=== PATIENT | male | born 1975 | race Caucasian/White ===

== ENCOUNTER 2019-09-13 16:52 | Inpatient (IN) | payer SELFPAY ==
[~2019-09-13] VITALS: Ht 190.5 cm; Wt 181.4 kg
[2019-09-13 17:36] LABS: BASO # 0.1 x10^3/uL (0.0-0.2); BASO % 1 % (0-3); EOS # 0.2 x10^3/uL (0.0-0.7); EOS % 2 % (0-3); HEMATOCRIT 46.9 % (39.0-53.0); HEMOGLOBIN 16.2 g/dL (13.0-17.5); LYMPH # 2.4 x10^3/uL (1.0-4.8); LYMPH % 28 % (24-48); MEAN CORPUSCULAR HEMOGLOBIN 32 pg (25-35); MEAN CORPUSCULAR HGB CONC 35 g/dL (31-37); MEAN CORPUSCULAR VOLUME 93 fL (79-100); MONO # 1.1 x10^3/uL (0.0-1.1); MONO % 13 % (0-9); NEUT # 4.9 x10^3/uL (1.8-7.7); NEUT % 56 % (31-73); PLATELET COUNT 141 x10^3/uL (140-400); RED BLOOD COUNT 5.03 x10^6/uL (4.30-5.70); RED CELL DISTRIBUTION WIDTH 13.4 % (11.5-14.5); WHITE BLOOD COUNT 8.8 x10^3/uL (4.0-11.0)
[2019-09-13 17:52] LABS: CALCIUM 8.9 mg/dL (8.5-10.1); CREATININE 1.1 mg/dL (0.7-1.3); GFR 72.1; POTASSIUM 4.1 mmol/L (3.5-5.1); PROTHROMBIN TIME PATIENT 13.2 SEC (11.7-14.0)
--- NOTE | 2019-09-13 17:55 | PHYS DOC ---
Past Medical History Past Medical History: Asthma, Bronchitis, Coagulopathy, Pneumonia Additional Past Medical Histor: LUPUS ANTICOAGULANT SYNDROME, HYPOGYCEMIA Additional Past Surgical Histo: right common femoral stenting, vena cava filter Alcohol Use: Rarely Adult General Chief Complaint Chief Complaint: LOWER EXTREMITY SWELLING HPI HPI Patient is a 44 year old male who presents with right lower leg pain, started 2 days ago. diffuse pain behind the knee and down. no injury or trauma. No redness or fevers. Hx of DVT, chronic coagulopathy. states he recently moved here, no PCP. States he is supposed to be on Xarelto but can not afford. Has not been taking for 3 months. Last DVT of the leg 7 months ago. States he has a stent in the right upper leg and Vena cava filter. He denies SOB or CP. He is resting in no distress Review of Systems Review of Systems Constitutional: Denies fever or chills [] Eyes: Denies change in visual acuity, redness, or eye pain [] HENT: Denies nasal congestion or sore throat [] Respiratory: Denies cough or shortness of breath [] Cardiovascular: No additional information not addressed in HPI [] GI: Denies abdominal pain, nausea, vomiting, bloody stools or diarrhea [] Musculoskeletal: Denies back pain. C/o right lower leg pain Integument: Denies rash or skin lesions [] Neurologic: Denies headache, focal weakness or sensory changes [] Endocrine: Denies polyuria or polydipsia [] All other systems were reviewed and found to be within normal limits, except as documented in this note. Current Medications Current Medications Current Medications Medications (Trade) Dose Ordered Sig/Cecil Start Time Stop Time Status Last Admin Dose Admin Fentanyl Citrate (Fentanyl 2ml Vial) 50 mcg 1X ONCE 09/13/19 18:00 09/13/19 18:01 DC 09/13/19 17:56 50 MCG Info (CONTRAST GIVEN -- Rx MONITORING) 1 each PRN DAILY PRN 09/13/19 19:30 09/15/19 19:29 Iohexol (Omnipaque 350 Mg/ml) 100 ml 1X ONCE 09/13/19 19:30 09/13/19 19:31 DC 09/13/19 19:45 100 ML Allergies Allergies Allergies Coded Allergies Type Severity Reaction Last Updated Verified morphine Adverse Reaction Intermediate Nausea 09/13/19 Yes Physical Exam Physical Exam Constitutional: Well developed, well nourished, no acute distress, non-toxic appearance. [] HENT: Normocephalic, atraumatic, bilateral external ears normal, oropharynx moist, no oral exudates, nose normal. [] Eyes: PERRLA, EOMI, conjunctiva normal, no discharge. [] Neck: Normal range of motion, no tenderness, supple, no stridor. [] Cardiovascular:Heart rate regular rhythm, no murmur [] Lungs & Thorax: Bilateral breath sounds clear to auscultation [] Abdomen: Bowel sounds normal, soft, no tenderness, no masses, no pulsatile masses. [] Skin: Warm, dry, no erythema, no rash. [] Extremities: No tenderness, no cyanosis, no clubbing, ROM intact. No redness, obese, no pitting edema to lower leg, 1+ edema to foot. Intact pulses and distal cap refill, due to obesity able to locate pulse with doppler. Neurologic: Alert and oriented X 3, normal motor function, normal sensory function, no focal deficits noted. [] Psychologic: Affect normal, judgement normal, mood normal. [] Current Patient Data Vital Signs Vital Signs Date Time Temp Pulse Resp B/P (MAP) Pulse Ox O2 Delivery O2 Flow Rate FiO2 09/13/19 18:47 95 22 137/87 (104) 95 Room Air Lab Values Laboratory Tests Test 09/13/19 17:28 White Blood Count 8.8 x10^3/uL (4.0-11.0) Red Blood Count 5.03 x10^6/uL (4.30-5.70) Hemoglobin 16.2 g/dL (13.0-17.5) Hematocrit 46.9 % (39.0-53.0) Mean Corpuscular Volume 93 fL (79-100) Mean Corpuscular Hemoglobin 32 pg (25-35) Mean Corpuscular Hemoglobin Concent 35 g/dL (31-37) Red Cell Distribution Width 13.4 % (11.5-14.5) Platelet Count 141 x10^3/uL (140-400) Neutrophils (%) (Auto) 56 % (31-73) Lymphocytes (%) (Auto) 28 % (24-48) Monocytes (%) (Auto) 13 % (0-9) H Eosinophils (%) (Auto) 2 % (0-3) Basophils (%) (Auto) 1 % (0-3) Neutrophils # (Auto) 4.9 x10^3/uL (1.8-7.7) Lymphocytes # (Auto) 2.4 x10^3/uL (1.0-4.8) Monocytes # (Auto) 1.1 x10^3/uL (0.0-1.1) Eosinophils # (Auto) 0.2 x10^3/uL (0.0-0.7) Basophils # (Auto) 0.1 x10^3/uL (0.0-0.2) Prothrombin Time 13.2 SEC (11.7-14.0) Prothrombin Time INR 1.0 (0.8-1.1) Activated Partial Thromboplast Time 31 SEC (24-38) Sodium Level 140 mmol/L (136-145) Potassium Level 4.1 mmol/L (3.5-5.1) Chloride Level 105 mmol/L (98-107) Carbon Dioxide Level 26 mmol/L (21-32) Anion Gap 9 (6-14) Blood Urea Nitrogen 9 mg/dL (8-26) Creatinine 1.1 mg/dL (0.7-1.3) Estimated GFR (Cockcroft-Gault) 72.1 Glucose Level 143 mg/dL (70-99) H Calcium Level 8.9 mg/dL (8.5-10.1) Troponin I Quantitative < 0.017 ng/mL (0.000-0.055) Laboratory Tests 09/13/19 17:28 Laboratory Tests 09/13/19 17:28 EKG EKG [] Radiology/Procedures Radiology/Procedures [] Signed PATIENT: SPARKLE RODRIGUEZACCOUNT: [id number] : 1975 LOCATION: ER AGE: 44 SEX: M EXAM STATUS: REG ER ORD. PHYSICIAN: JUDY MASCORRO APRN REASON: r/o DVT PROCEDURE: VENOUS LOWER EXTREMITY RIGHT STUDY: VENOUS LOWER EXTREMITY RIGHT INDICATION: Concern for DVT. History of venous stent placement. TECHNIQUE: Color-flow and pulsed wave duplex ultrasound with compression of venous structures of the right lower extremity. COMPARISON: None Available. FINDINGS: Duplex ultrasound with compression of the deep venous structures of the right lower extremity from the common femoral vein through the calf veins is performed. Note is made that the study is made difficult secondary to body habitus. There is loss of compressibility as well as absence of Doppler flow consistent with occlusion involving the distal portion of the right common femoral vein, the superficial femoral vein and the majority of the popliteal vein. There is limited visualization of the peroneal and posterior tibial veins. Subcutaneous edema seen at the lower legs. IMPRESSION: 1. The study is made difficult due to patient body habitus. 2. In the setting of prior venous stenting, there is occlusion of at least the distal portion right common femoral vein, the entirety of the superficial femoral vein and most of the popliteal vein. The distal aspect of the popliteal vein as well as the calf veins are not well evaluated. FOR INTERNAL CODING PURPOSES RESULT CODE: (C) Significant findings were relayed to Dr. Mascorro by telephone on 09/13/2019 at 1925 hours. Electronically signed by: ASHOK GOMEZ MD (09/13/2019 7:27 PM) [facility] [place] Signed PATIENT: PSARKLE RODRIGUEZACCOUNT: [id number] : 1975 LOCATION: ER AGE: 44 SEX: M EXAM STATUS: REG ER ORD. PHYSICIAN: JUDY MASCORRO APRN REASON: r/o PE PROCEDURE: CT ANGIOGRAPHY CHEST PQRS Compliance Statement: One or more of the following individualized dose reduction techniques were utilized for this examination: 1. Automated exposure control 2. Adjustment of the mA and/or kV according to patient size 3. Use of iterative reconstruction technique CT angiography chest with contrast 09/13/2019 7:11 PM INDICATION: DVT COMPARISON: None available TECHNIQUE: Axial CT images of the chest were obtained after the intravenous administration of nonionic contrast. Coronal and sagittal reformats are provided. Maximum intensity projection images of the thoracic vasculature are provided. FINDINGS: The thyroid gland is normal in appearance. There are no pathologically enlarged axillary, mediastinal or hilar lymph nodes.] Lymph node measures 6.5 mm. Left hilar lymph node measures 6 mm. The heart size is within normal limits. No significant pericardial effusion. Thoracic aorta is normal in course and caliber. There is suboptimal opacification of the pulmonary arterial system with limited evaluation of the segmental and subsegmental pulmonary arteries. There there are no filling defects within the pulmonary arterial system to suggest acute or chronic pulmonary embolus. 6 mm solid noncalcified pulmonary nodule is identified in the right middle lobe (series 3, image 68). There are no pulmonary infiltrates. There are no pleural effusions. No pulmonary vascular congestion or pneumothorax. Hepatic steatosis. Nodular configuration of the hepatic parenchyma may reflect cirrhosis. IMPRESSION: Limited segmental and subsegmental pulmonary arteries secondary to suboptimal opacification. There is no evidence for acute or chronic pulmonary embolism. 6 mm solid noncalcified pulmonary nodule is identified in the right middle lobe (series 3, image 68). 6/12 month follow-up chest CT is recommended to ensure severity per Fleischner 2017 pulmonary nodule guidelines. Nonenlarged bilateral hilar lymph nodes are likely reactive. Electronically signed by: Alise Griffiths MD (09/13/2019 8:04 PM) [facility] Impressions: Right leg DVT, acute Course & Med Decision Making Course & Med Decision Making Pertinent Labs and Imaging studies reviewed. (See chart for details) []Hx of coagulopathy, not on Xarelto due to cost, states he does not tolerate Coumadin or Lovenox, not therapeutic with either. Has Vena cava filter no SOB or CP. Mild tachycardia, declines work up for PE,states he is here for right leg pain and r/o DVT, not symptoms of prior PE. Labs reviewed, WNL US right leg: + DVT 1924: Rad called with report Discussed finding with patient, again questioned him out PE symptoms. He has a Vena cava filter but reports it "is bad" has had a PE since this was placed, at that time Xarelto was 10 mg daily, increased to 20 mg Mother at bedside reports SOB with exertion and is requesting CT PE study, patient denies but is in agreement Remains with no CP or hypoxia CT chest: neg Will admit to Hospitalist, Heparin protocol, discussed with pharmacy, weight based, will dose for obesity and max dose. Bolus Patient in agreement for admission, remains in stable condition Requesting albuterol treatment, hx of asthma, lungs CTA, "feeling tight" No hypoxia, no CP Dragon Disclaimer Dragon Disclaimer This electronic medical record was generated, in whole or in part, using a voice recognition dictation system. Departure Departure Impression: Primary Impression: Right leg DVT Disposition: ADMITTED INPATIENT (riffel) Condition: STABLE Referrals: NO PCP (PCP) JUDY MASCORRO APRN Sep 13, 2019 17:55
[2019-09-13] MEDS ORDERED: fentaNYL PF VIAL 100 MCG/2 ML VIAL IVP ONE (18:00)
[2019-09-13] MEDS ORDERED: IOHEXOL 350 MG/ML 100 ML VIAL. IV ONE (19:30)
[2019-09-13] MEDS ORDERED: CONTRAST GIVEN. MC PRN (19:30)
--- NOTE | 2019-09-13 19:30 | RAD ---
STUDY: VENOUS LOWER EXTREMITY RIGHT INDICATION: Concern for DVT. History of venous stent placement. TECHNIQUE: Color-flow and pulsed wave duplex ultrasound with compression of venous structures of the right lower extremity. COMPARISON: None Available. FINDINGS: Duplex ultrasound with compression of the deep venous structures of the right lower extremity from the common femoral vein through the calf veins is performed. Note is made that the study is made difficult secondary to body habitus. There is loss of compressibility as well as absence of Doppler flow consistent with occlusion involving the distal portion of the right common femoral vein, the superficial femoral vein and the majority of the popliteal vein. There is limited visualization of the peroneal and posterior tibial veins. Subcutaneous edema seen at the lower legs. IMPRESSION: 1. The study is made difficult due to patient body habitus. 2. In the setting of prior venous stenting, there is occlusion of at least the distal portion right common femoral vein, the entirety of the superficial femoral vein and most of the popliteal vein. The distal aspect of the popliteal vein as well as the calf veins are not well evaluated. FOR INTERNAL CODING PURPOSES RESULT CODE: (C) Significant findings were relayed to Dr. Mascorro by telephone on 09/13/2019 at 1925 hours. Electronically signed by: ASHOK GOMEZ MD (09/13/2019 7:27 PM) [facility] [place]
--- NOTE | 2019-09-13 20:07 | RAD ---
PQRS Compliance Statement: One or more of the following individualized dose reduction techniques were utilized for this examination: 1. Automated exposure control 2. Adjustment of the mA and/or kV according to patient size 3. Use of iterative reconstruction technique CT angiography chest with contrast 09/13/2019 7:11 PM INDICATION: DVT COMPARISON: None available TECHNIQUE: Axial CT images of the chest were obtained after the intravenous administration of nonionic contrast. Coronal and sagittal reformats are provided. Maximum intensity projection images of the thoracic vasculature are provided. FINDINGS: The thyroid gland is normal in appearance. There are no pathologically enlarged axillary, mediastinal or hilar lymph nodes.] Lymph node measures 6.5 mm. Left hilar lymph node measures 6 mm. The heart size is within normal limits. No significant pericardial effusion. Thoracic aorta is normal in course and caliber. There is suboptimal opacification of the pulmonary arterial system with limited evaluation of the segmental and subsegmental pulmonary arteries. There there are no filling defects within the pulmonary arterial system to suggest acute or chronic pulmonary embolus. 6 mm solid noncalcified pulmonary nodule is identified in the right middle lobe (series 3, image 68). There are no pulmonary infiltrates. There are no pleural effusions. No pulmonary vascular congestion or pneumothorax. Hepatic steatosis. Nodular configuration of the hepatic parenchyma may reflect cirrhosis. IMPRESSION: Limited segmental and subsegmental pulmonary arteries secondary to suboptimal opacification. There is no evidence for acute or chronic pulmonary embolism. 6 mm solid noncalcified pulmonary nodule is identified in the right middle lobe (series 3, image 68). 6/12 month follow-up chest CT is recommended to ensure severity per Fleischner 2017 pulmonary nodule guidelines. Nonenlarged bilateral hilar lymph nodes are likely reactive. Electronically signed by: Alise Griffiths MD (09/13/2019 8:04 PM) [place] [id number]
[2019-09-13] MEDS ORDERED: ONDANSETRON PF 4 MG/2 ML VIAL. IV PRN (20:30)
[2019-09-13] MEDS ORDERED: HEPARIN for IV BOLUS 10,000 UNIT/10 ML VIAL. IV PRN ×2 (20:30)
[2019-09-13] MEDS ORDERED: HEPARIN for IV BOLUS 10,000 UNIT/10 ML VIAL. IV ONE (20:30)
[2019-09-13] MEDS ORDERED: ALBUTEROL SULFATE 2.5 MG/3 ML NEBU. NEB ONE (20:30)
[2019-09-13] MEDS: HEPARIN 25,000UTS/500ML PREMIX 500 ML IV PRN (21:19)
[2019-09-13 21:25] VITALS: BP 114/69
[2019-09-13] MEDS ORDERED: ALBUTEROL SULFATE 2.5 MG/3 ML NEBU. NEB PRN (21:30)
[2019-09-13] MEDS: IPRATRPIUM/ALBUTEROL 0.5/2.5MG 3 ML NEBU. NEB SCH (21:38)
[2019-09-13] MEDS: fentaNYL PF VIAL 100 MCG/2 ML VIAL IV PRN (22:20)
[2019-09-13] MEDS ORDERED: RIVA20TA2 PO (23:45)
[2019-09-13] MEDS ORDERED: IPRA3AMP29 NEB (23:45)
[2019-09-13] MEDS ORDERED: ALBU2.5V8 IH (23:45)
[2019-09-13 23:58] VITALS: BP 132/75
[2019-09-14] MEDS ORDERED: IOHEXOL 350 MG/ML 100 ML VIAL. ONE (00:41)
[2019-09-14 03:45] VITALS: BP 113/55
[2019-09-14] MEDS: fentaNYL PF VIAL 100 MCG/2 ML VIAL IV PRN ×3 (06:10→19:55)
[2019-09-14 08:00] VITALS: BP 132/76
[2019-09-14] MEDS: IPRATRPIUM/ALBUTEROL 0.5/2.5MG 3 ML NEBU. NEB SCH ×4 (08:10→19:08)
--- NOTE | 2019-09-14 10:50 | PDOC1 ---
History and Physical Date of Admission Date of Admission DATE: 09/14/19 TIME: 08:49 Identification/Chief Complaint Chief Complaint 44 year old male who presents with right lower leg pain, started 2 days ago. diffuse pain behind the knee and down. no injury or trauma. No redness or fevers. Hx of DVT, chronic coagulopathy. states he recently moved here, no PCP. States he is supposed to be on Xarelto but can not afford. Has not been taking for 3 months. BUT NOW HAS ASSISTANCE CARD Last DVT of the leg 7 months ago. he has a stent in the right upper leg and Vena cava filter. 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, AND [employer] INSURANCE IN OCT 2019 Past Medical History Past Medical History Past Medical History Past Medical History Past Medical History: Asthma, Bronchitis, Coagulopathy, Pneumonia Additional Past Medical Histor: LUPUS ANTICOAGULANT SYNDROME, HYPOGYCEMIA Additional Past Surgical Histo: right common femoral stenting, vena cava filter Alcohol Use: Rarely fhx obesity Pulmonary: Asthma Family History Family History: Hypertension Social History Smoke: <1 pack per day ALCOHOL: none Drugs: None Current Medications Current Medications Current Medications Fentanyl Citrate (Fentanyl 2ml Vial) 50 mcg 1X ONCE IVP Last administered on 09/13/19at 17:56; Start 09/13/19 at 18:00; Stop 09/13/19 at 18:01; Status DC Iohexol (Omnipaque 350 Mg/ml) 100 ml 1X ONCE IV Last administered on 09/13/19at 19:45; Start 09/13/19 at 19:30; Stop 09/13/19 at 19:31; Status DC Info (CONTRAST GIVEN -- Rx MONITORING) 1 each PRN DAILY PRN MC SEE COMMENTS; Start 09/13/19 at 19:30; Stop 09/15/19 at 19:29 Albuterol Sulfate (Ventolin Neb Soln) 2.5 mg 1X ONCE NEB ; Start 09/13/19 at 20:30; Stop 09/13/19 at 21:26; Status DC Heparin Sodium (Porcine) (Heparin Sodium) 10,000 unit 1X ONCE IV Last administered on 09/13/19at 21:18; Start 09/13/19 at 20:30; Stop 09/13/19 at 20:31; Status DC Heparin Sodium/ Dextrose 500 ml @ 40 mls/hr CONT PRN IV PER PROTOCOL Last administered on 09/13/19at 21:19; Start 09/13/19 at 20:30 Heparin Sodium (Porcine) (Heparin Sodium) 5,500 unit PRN Q6HRS PRN IV FOR UFH LEVEL LESS THAN 0.2; Start 09/13/19 at 20:30 Heparin Sodium (Porcine) (Heparin Sodium) 2,700 unit PRN Q6HRS PRN IV FOR UFH LEVEL 0.2 - 0.29; Start 09/13/19 at 20:30 Ondansetron HCl (Zofran) 4 mg PRN Q8HRS PRN IV NAUSEA/VOMITING; Start 09/13/19 at 20:30; Stop 09/14/19 at 20:29 Fentanyl Citrate (Fentanyl 2ml Vial) 50 mcg PRN Q1HR PRN IV PAIN Last administered on 09/14/19at 06:10; Start 09/13/19 at 20:30; Stop 09/14/19 at 20:29 Albuterol/ Ipratropium (Duoneb) 3 ml RTQID NEB Last administered on 09/14/19at 08:10; Start 09/13/19 at 21:30 Albuterol Sulfate (Ventolin Neb Soln) 2.5 mg PRN Q4HRS PRN NEB SHORTNESS OF BREATH Last administered on 09/14/19at 06:08; Start 09/13/19 at 21:30 Iohexol (Omnipaque 350 Mg/ml) 100 ml STK-MED ONCE .ROUTE ; Start 09/14/19 at 00:41; Stop 09/14/19 at 00:41; Status DC Active Scripts Active Reported Duoneb 0.5-3(2.5) Mg/3 Ml (Albuterol/Ipratropium) 3 Ml Ampul.neb 3 Ml NEB QID Proair Hfa Inhaler (Albuterol Sulfate) 8.5 Gm Hfa.aer.ad 2 Puff IH PRN Q4-6HRS PRN 21 Days Xarelto (Rivaroxaban) 20 Mg Tablet 1 Tab PO DAILY 30 Days with food Allergies Allergies: Coded Allergies: morphine (Verified Adverse Reaction, Intermediate, Nausea, 09/13/19) ROS Review of System Review of Systems Review of Systems Constitutional: Denies fever or chills [] Eyes: Denies change in visual acuity, redness, or eye pain [] HENT: Denies nasal congestion or sore throat [] Respiratory: Denies cough or shortness of breath [] Cardiovascular: No additional information not addressed in HPI [] GI: Denies abdominal pain, nausea, vomiting, bloody stools or diarrhea [] Musculoskeletal: Denies back pain. C/o right lower leg pain Integument: Denies rash or skin lesions [] Neurologic: Denies headache, focal weakness or sensory changes [] Endocrine: Denies polyuria or polydipsia [] 14 PT systems were reviewed and found to be within normal limits, except as documented Respiratory: No: Cough, Hemoptysis, Orthopnea, Pleuritic Pain, Shortness of breath, SOB with excertion, Sputum Changes, Stridor, Tachypnea, Wheezing, Other Cardiovascular: No Chest Pain, No Palpitations, No Orthopnea, No Paroxysmal Noc. Dyspnea, No Edema, No Lt Headedness, No Other Musculoskeletal: Yes Gait Disturbance, Yes Joint Stiffness Neurological: Yes Gait Disturbance Physical Exam Physical Exam Physical Exam Physical Exam Constitutional: Well developed, well nourished, no acute distress, non-toxic appearance. [] HENT: Normocephalic, atraumatic, bilateral external ears normal, oropharynx moist, no oral exudates, nose normal. [] Eyes: PERRLA, EOMI, conjunctiva normal, no discharge. [] Neck: Normal range of motion, no tenderness, supple, no stridor. [] Cardiovascular:Heart rate regular rhythm, no murmur [] Lungs & Thorax: Bilateral breath sounds clear to auscultation [] Abdomen: Bowel sounds normal, soft, no tenderness, no masses, no pulsatile masses. [] Skin: Warm, dry, no erythema, no rash. [] Extremities: No tenderness, no cyanosis, no clubbing, ROM intact. No redness, ob galina, no pitting edema to lower leg, 1+ edema to foot. Neurologic: Alert and oriented X 3, normal motor function, normal sensory function, no focal deficits noted. [] Psychologic: Affect normal, judgment normal, mood normal. [] General: Alert, Oriented X3, Cooperative, No acute distress HEENT: Atraumatic, EOMI, Mucous membr. moist/pink Lungs: Clear to auscultation, Normal air movement Heart: RRR, no thrills Breasts: Not examined Abdomen: Normal bowel sounds, Soft Rectal Exam: not examined PELVIC: Examination not indicated Extremities: No cyanosis Neuro: Normal speech, Cranial nerves 3-12 NL Psych/Mental Status: Mental status NL, Mood NL Vitals Vitals Vital Signs Date Time Temp Pulse Resp B/P (MAP) Pulse Ox O2 Delivery O2 Flow Rate FiO2 09/14/19 09:29 95 Room Air 09/14/19 08:00 98.4 79 19 132/76 (94) 98.4 Labs Labs Laboratory Tests Test 09/13/19 17:28 09/14/19 04:15 White Blood Count 8.8 x10^3/uL (4.0-11.0) Red Blood Count 5.03 x10^6/uL (4.30-5.70) Hemoglobin 16.2 g/dL (13.0-17.5) Hematocrit 46.9 % (39.0-53.0) Mean Corpuscular Volume 93 fL (79-100) Mean Corpuscular Hemoglobin 32 pg (25-35) Mean Corpuscular Hemoglobin Concent 35 g/dL (31-37) Red Cell Distribution Width 13.4 % (11.5-14.5) Platelet Count 141 x10^3/uL (140-400) Neutrophils (%) (Auto) 56 % (31-73) Lymphocytes (%) (Auto) 28 % (24-48) Monocytes (%) (Auto) 13 % (0-9) Eosinophils (%) (Auto) 2 % (0-3) Basophils (%) (Auto) 1 % (0-3) Neutrophils # (Auto) 4.9 x10^3/uL (1.8-7.7) Lymphocytes # (Auto) 2.4 x10^3/uL (1.0-4.8) Monocytes # (Auto) 1.1 x10^3/uL (0.0-1.1) Eosinophils # (Auto) 0.2 x10^3/uL (0.0-0.7) Basophils # (Auto) 0.1 x10^3/uL (0.0-0.2) Prothrombin Time 13.2 SEC (11.7-14.0) Prothromb Time International Ratio 1.0 (0.8-1.1) Activated Partial Thromboplast Time 31 SEC (24-38) Sodium Level 140 mmol/L (136-145) Potassium Level 4.1 mmol/L (3.5-5.1) Chloride Level 105 mmol/L (98-107) Carbon Dioxide Level 26 mmol/L (21-32) Anion Gap 9 (6-14) Blood Urea Nitrogen 9 mg/dL (8-26) Creatinine 1.1 mg/dL (0.7-1.3) Estimated GFR (Cockcroft-Gault) 72.1 Glucose Level 143 mg/dL (70-99) Calcium Level 8.9 mg/dL (8.5-10.1) Troponin I Quantitative < 0.017 ng/mL (0.000-0.055) Heparin Anti-Xa Act, Unfractionated 0.19 IU/mL (0.30-0.70) Laboratory Tests Test 09/13/19 17:28 09/14/19 04:15 White Blood Count 8.8 x10^3/uL (4.0-11.0) Red Blood Count 5.03 x10^6/uL (4.30-5.70) Hemoglobin 16.2 g/dL (13.0-17.5) Hematocrit 46.9 % (39.0-53.0) Mean Corpuscular Volume 93 fL (79-100) Mean Corpuscular Hemoglobin 32 pg (25-35) Mean Corpuscular Hemoglobin Concent 35 g/dL (31-37) Red Cell Distribution Width 13.4 % (11.5-14.5) Platelet Count 141 x10^3/uL (140-400) Neutrophils (%) (Auto) 56 % (31-73) Lymphocytes (%) (Auto) 28 % (24-48) Monocytes (%) (Auto) 13 % (0-9) Eosinophils (%) (Auto) 2 % (0-3) Basophils (%) (Auto) 1 % (0-3) Neutrophils # (Auto) 4.9 x10^3/uL (1.8-7.7) Lymphocytes # (Auto) 2.4 x10^3/uL (1.0-4.8) Monocytes # (Auto) 1.1 x10^3/uL (0.0-1.1) Eosinophils # (Auto) 0.2 x10^3/uL (0.0-0.7) Basophils # (Auto) 0.1 x10^3/uL (0.0-0.2) Prothrombin Time 13.2 SEC (11.7-14.0) Prothromb Time International Ratio 1.0 (0.8-1.1) Activated Partial Thromboplast Time 31 SEC (24-38) Sodium Level 140 mmol/L (136-145) Potassium Level 4.1 mmol/L (3.5-5.1) Chloride Level 105 mmol/L (98-107) Carbon Dioxide Level 26 mmol/L (21-32) Anion Gap 9 (6-14) Blood Urea Nitrogen 9 mg/dL (8-26) Creatinine 1.1 mg/dL (0.7-1.3) Estimated GFR (Cockcroft-Gault) 72.1 Glucose Level 143 mg/dL (70-99) Calcium Level 8.9 mg/dL (8.5-10.1) Troponin I Quantitative < 0.017 ng/mL (0.000-0.055) Heparin Anti-Xa Act, Unfractionated 0.19 IU/mL (0.30-0.70) Images Images PQRS Compliance Statement: One or more of the following individualized dose reduction techniques were utilized for this examination: 1. Automated exposure control 2. Adjustment of the mA and/or kV according to patient size 3. Use of iterative reconstruction technique CT angiography chest with contrast 09/13/2019 7:11 PM INDICATION: DVT COMPARISON: None available TECHNIQUE: Axial CT images of the chest were obtained after the intravenous administration of nonionic contrast. Coronal and sagittal reformats are provided. Maximum intensity projection images of the thoracic vasculature are provided. FINDINGS: The thyroid gland is normal in appearance. There are no pathologically enlarged axillary, mediastinal or hilar lymph nodes.] Lymph node measures 6.5 mm. Left hilar lymph node measures 6 mm. The heart size is within normal limits. No significant pericardial effusion. Thoracic aorta is normal in course and caliber. There is suboptimal opacification of the pulmonary arterial system with limited evaluation of the segmental and subsegmental pulmonary arteries. There there are no filling defects within the pulmonary arterial system to suggest acute or chronic pulmonary embolus. 6 mm solid noncalcified pulmonary nodule is identified in the right middle lobe (series 3, image 68). There are no pulmonary infiltrates. There are no pleural effusions. No pulmonary vascular congestion or pneumothorax. Hepatic steatosis. Nodular configuration of the hepatic parenchyma may reflect cirrhosis. IMPRESSION: Limited segmental and subsegmental pulmonary arteries secondary to suboptimal opacification. There is no evidence for acute or chronic pulmonary embolism. 6 mm solid noncalcified pulmonary nodule is identified in the right middle lobe (series 3, image 68). 6/12 month follow-up chest CT is recommended to ensure severity per Fleischner 2017 pulmonary nodule guidelines. Nonenlarged bilateral hilar lymph nodes are likely reactive. Electronically signed by: Teressa Griffiths MD (09/13/2019 8:04 PM) [facility] [id number] DICTATED and SIGNED BY: TERESSA GRIFFITHS MD DATE: 09/13/192003 SEX: M EXAM STATUS: REG ER ORD. PHYSICIAN: JUDY GIL APRN REASON: r/o DVT PROCEDURE: VENOUS LOWER EXTREMITY RIGHT STUDY: VENOUS LOWER EXTREMITY RIGHT INDICATION: Concern for DVT. History of venous stent placement. TECHNIQUE: Color-flow and pulsed wave duplex ultrasound with compression of venous structures of the right lower extremity. COMPARISON: None Available. FINDINGS: Duplex ultrasound with compression of the deep venous structures of the right lower extremity from the common femoral vein through the calf veins is performed. Note is made that the study is made difficult secondary to body habitus. There is loss of compressibility as well as absence of Doppler flow consistent with occlusion involving the distal portion of the right common femoral vein, the superficial femoral vein and the majority of the popliteal vein. There is limited visualization of the peroneal and posterior tibial veins. Subcutaneous edema seen at the lower legs. IMPRESSION: 1. The study is made difficult due to patient body habitus. 2. In the setting of prior venous stenting, there is occlusion of at least the distal portion right common femoral vein, the entirety of the superficial femoral vein and most of the popliteal vein. The distal aspect of the popliteal vein as well as the calf veins are not well evaluated. VTE Prophylaxis Ordered VTE Prophylaxis Devices: Contraindicated VTE Pharmacological Prophylaxi: Yes Assessment/Plan Assessment/Plan IMPRESSION ACUTE ON CHRONIC DVT there is occlusion of at least the distal portion right common femoral vein, the entirety of the superficial femoral vein and most of the popliteal vein. The distal aspect of the popliteal vein as well as the calf veins are not well evaluated. MORBID OBESITY FIRST DVT 2010 LUPUS ANTICOAGULANT SYNDROME ON CTA 6 mm solid noncalcified pulmonary nodule is identified in the right middle lobe (series 3, image 68). 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
[2019-09-14] MEDS: HEPARIN 25,000UTS/500ML PREMIX 500 ML IV PRN (10:53)
[2019-09-14 11:00] VITALS: BP 117/72
[2019-09-14] MEDS ORDERED: cloNIDine HCL 0.1 MG TABLET PO PRN (13:00)
[2019-09-14] MEDS ORDERED: ONDANSETRON PF 4 MG/2 ML VIAL. IV PRN (13:00)
[2019-09-14] MEDS ORDERED: ACETAMINOPHEN 325 MG TABLET. PO PRN (13:00)
[2019-09-14] MEDS ORDERED: ALBUTEROL SULFATE 2.5 MG/3 ML NEBU. NEB PRN (13:00)
[2019-09-14] MEDS ORDERED: LORazepam 0.5 MG TABLET PO PRN (13:00)
[2019-09-14] MEDS ORDERED: DOCUSATE SODIUM 100 MG CAPSULE. PO PRN (13:00)
[2019-09-14] MEDS ORDERED: SODIUM PHOSPHATES 19/7GM 133 ML ENEMA. PR PRN (13:00)
[2019-09-14] MEDS ORDERED: 0.9 % SODIUM CHLORIDE 10 ML DISP.SYRIN. IV PRN (13:00)
[2019-09-14] MEDS ORDERED: MAG HYDROX/ALUMINUM HYD/SIMETH 30 ML ORAL.SUSP PO PRN (13:00)
[2019-09-14 15:00] VITALS: BP 156/76
[2019-09-14] MEDS ORDERED: WARFARIN 7.5 MG TABLET. PO SCH (16:00)
[2019-09-14] MEDS ORDERED: ANTI-COAG MONITOR BY PHARMACY. MC PRN (16:00)
[2019-09-14] MEDS: RIVAROXABAN 15 MG TABLET. PO SCH (17:52)
--- NOTE | 2019-09-14 18:53 | PDOC ---
Provider Note Provider Note Vascular consult dictated Imp: 1. recurrent DVT right leg affecting the common femoral, femoral and popliteal veins. Prior episode in 2010 2. hypercoagulable state. (lupus anticoagulant) 3. s/p placement of IVC filter 4. morbid obesity 5. tobaccoism Rec: 1. lifelong anticoagulation with warfarin or 10a inhibitor. Heparin has been started. 2. weight loss 3. knee high class 3 graduated compression stocking 4. tobacco cessation 5. leg elevation when able 6. f/u as needed. DONNIE COLMENARES II, MD Sep 14, 2019 18:53
[2019-09-14 19:44] VITALS: BP 156/74
--- NOTE | 2019-09-14 20:08 | CONS ---
DATE OF CONSULTATION: 09/14/2019 VASCULAR SURGERY CONSULTATION CLINICAL HISTORY: This is a 44-year-old gentleman who presents with recurrent pain in the right lower extremity. He has had a prior episode of deep vein thrombosis involving the common femoral vein, femoral vein, and popliteal vein in 2010. He has known lupus anticoagulant syndrome and he is morbidly obese. He has stopped taking Xarelto about 3-4 months ago because of cost issues. He does not complain of chest pain or shortness of breath and he has had no complaints of hemoptysis. Currently, his leg feels much better and he is having no respiratory issues. He has had a prior inferior vena cava filter placed and apparently had an attempt to remove it, which was unsuccessful. The patient had a CT angiogram of the chest, which demonstrates no evidence for pulmonary embolism. Venous duplex imaging reveals acute on chronic thrombosis of the right common femoral vein, femoral vein, and popliteal vein. His risk factors for thromboembolic disease include morbid obesity, lupus anticoagulant syndrome, and tobaccoism. PAST MEDICAL HISTORY: Significant for asthma, bronchitis, hypercoagulable state, pneumonia, and history of deep vein thrombosis. FAMILY HISTORY: Significant for hypertension. SOCIAL HISTORY: The patient smokes less than 1 pack of cigarettes per day. Denies alcohol abuse. MEDICATIONS: Reviewed. Please see MAR. ALLERGIES: INCLUDE MORPHINE. REVIEW OF SYSTEMS: Twelve-point review of systems: He does not complain of chest pain or shortness of breath. He complains of pain in his right leg. Otherwise, 12-point review of systems is negative. PHYSICAL EXAMINATION: VITAL SIGNS: Reviewed. GENERAL: The patient is morbidly obese. He answers questions appropriately. He is in no distress. EXTREMITIES: His right leg is asymmetrically swollen compared to the left. There are no skin changes and no ulcers. He has palpable pedal pulses. CARDIOVASCULAR: Regular rate and rhythm. NEUROLOGIC: The patient is alert and oriented x 3. LABORATORY DATA: Reviewed. IMPRESSION: 1. Recurrent deep vein thrombosis, right lower extremity as described. His risk factors include hypercoagulable disorder, morbid obesity, and relative inactivity. 2. History of inferior vena cava filter placement without removal. 3. No evidence currently for pulmonary embolism by CT angiography. 4. History of tobaccoism. RECOMMENDATIONS: 1. Anticoagulation, currently on heparin. He will need to be transitioned either to warfarin or to Xarelto pending financial considerations. 2. Knee-high compression therapy, class 3 or above, open toe. 3. Elevation of the right lower extremity as tolerated. 4. He should be maintained on anticoagulation therapy for the remainder of his life as tolerated. Thank you for allowing me to evaluate him. DONNIE COLMENARES MD DR: DEBI/noni JOB#: [id number] / [id number]
[2019-09-14 23:25] VITALS: BP 137/65
[2019-09-15] MEDS ORDERED: oxyCODONE/APAP 5/325 1 TAB TABLET PO PRN (00:30)
[2019-09-15] MEDS: fentaNYL PF VIAL 100 MCG/2 ML VIAL IVP PRN ×2 (00:38→05:08)
[2019-09-15 03:36] VITALS: BP 127/63
[2019-09-15 04:49] LABS: HEMATOCRIT 44.2 % (39.0-53.0); HEMOGLOBIN 15.1 g/dL (13.0-17.5); RED BLOOD COUNT 4.66 x10^6/uL (4.30-5.70); RED CELL DISTRIBUTION WIDTH 13.8 % (11.5-14.5); WHITE BLOOD COUNT 8.6 x10^3/uL (4.0-11.0)
[2019-09-15 07:00] VITALS: BP 94/52
[2019-09-15] MEDS: IPRATRPIUM/ALBUTEROL 0.5/2.5MG 3 ML NEBU. NEB SCH ×2 (07:59→11:42)
--- NOTE | 2019-09-15 08:04 | NUR ---
SW following pt for dc planning. Chart reviewed. Pt lives at home with family. No SW needs identified at this time. SW will be available as needed.
[2019-09-15] MEDS: RIVAROXABAN 15 MG TABLET. PO SCH (09:33)
--- NOTE | 2019-09-15 10:37 | PDOC ---
[employer] PROGRESS NOTE Chief Complaint Chief Complaint Acute on Chronic DVT Morbid Obesity Lupus anticoagulant Syndrome History of Present Illness History of Present Illness 09/15/2019 Pt was seen and examined. Upon entering the room pt was resting comfortable, with possible apneic breathing, he was easily aroused and pleasant to converse with. No reported discomfort today, pt reports he's eager to be D/Raf. Vitals/I&O Vitals/I&O: Vital Signs Date Time Temp Pulse Resp B/P (MAP) Pulse Ox O2 Delivery O2 Flow Rate FiO2 09/15/19 09:48 96 Room Air 09/15/19 07:00 98.2 81 18 94/52 (66) 98.2 I & O 09/14/19 09/14/19 09/15/19 14:59 22:59 06:59 Intake Total 320 ml 570 ml 450 ml Balance 320 ml 570 ml 450 ml Physical Exam General: Alert, Oriented X3, Cooperative, No acute distress Heart: Regular rate Lungs: Clear Abdomen: Normal bowel sounds, Soft Extremities: No cyanosis Labs Labs: Laboratory Tests Test 09/14/19 12:05 09/15/19 03:40 Heparin Anti-Xa Act, Unfractionated 0.16 IU/mL (0.30-0.70) White Blood Count 8.6 x10^3/uL (4.0-11.0) Red Blood Count 4.66 x10^6/uL (4.30-5.70) Hemoglobin 15.1 g/dL (13.0-17.5) Hematocrit 44.2 % (39.0-53.0) Mean Corpuscular Volume 95 fL (79-100) Mean Corpuscular Hemoglobin 32 pg (25-35) Mean Corpuscular Hemoglobin Concent 34 g/dL (31-37) Red Cell Distribution Width 13.8 % (11.5-14.5) Platelet Count 140 x10^3/uL (140-400) Review of Systems Review of Systems: No CP, SOB, or N/V/D Assessment and Plan Assessmemt and Plan Acute on Chronic DVT Morbid Obesity Lupus anticoagulant Syndrome Plan: 1) Wrote patient a prescription for Xarleto to be continued as an outpatient (15mg po bid for 19 days, then 20mg qd thereafter) 2) Plan to D/C today if ok with vascular surgery 3) Full Code 4) DVT prophylaxis 5) Wrote patient a Doctor's note for missing work. Comment Review of Relevant I have reviewed the following items samantha (where applicable) has been applied. Medications: Current Medications Medications (Trade) Dose Ordered Sig/Cecil Route PRN Reason Start Time Stop Time Status Last Admin Dose Admin Rivaroxaban (Xarelto) 15 mg BIDWMEALS PO 09/14/19 17:00 10/04/19 17:01 09/15/19 09:33 Info (Anti-Coagulation Monitoring By Pharmacy) 1 each PRN DAILY PRN MC SEE COMMENTS 09/14/19 16:00 09/14/19 15:59 Fentanyl Citrate (Fentanyl 2ml Vial) 50 mcg PRN Q2HR PRN IVP PAIN 09/15/19 00:30 09/15/19 05:08 Oxycodone/ Acetaminophen (Percocet 5/325) 1 tab PRN Q4HRS PRN PO PAIN 09/15/19 00:30 09/15/19 09:48 FABIENNE NORWOOD III DO Sep 15, 2019 10:37
[2019-09-15 11:00] VITALS: BP 131/62
--- NOTE | 2019-09-15 12:37 | NUR ---
Discharge Note: [facility] Discharge instructions and discharge home medications reviewed with Patient and a copy given. All questions have been answered and understanding verbalized. The following instructions and handouts were given: prescriptions for xarelto, follow up instructions Discontinued lines and drains: 20 gauge right ac, tip intact. patient tolerated well. Patient discharged to home with self care via mother.
--- NOTE | 2019-09-17 15:26 | DS ---
DATE OF DISCHARGE: 09/15/2019 ADMISSION DIAGNOSIS: Deep venous thrombosis. DISCHARGE DIAGNOSIS: Resolving deep venous thrombosis. HOSPITAL COURSE: The patient is a pleasant 44-year-old male who presented with a DVT. This was actually his second clot. We anticoagulated the patient. We did get a second opinion from Vascular Surgery. No surgical intervention was required. He went home on p.o. anticoagulation. DISPOSITION: Home. ACTIVITY: As tolerated. DIET: Low sodium. MEDICATIONS: Please see MRAD. TOTAL TIME: 34 minutes. FABIENNE NORWOOD DO DR: LEDA/noni JOB#: [id number] / [id number]
[2019-10-05] MEDS ORDERED: RIVAROXABAN 10 MG TABLET. PO SCH (16:00)
== END 2019-09-15 12:00 | disposition home or self-care (01) | DRG 300 ==
LOC: ER 16:52 → 6 SOUTH 20:25
PROVIDERS: ADMIT Internal Medicine; ATTEND Internal Medicine
DX: I82.431 Acute embolism and thrombosis of right popliteal vein (principal); D68.62 Lupus anticoagulant syndrome; Z68.43 Body mass index [BMI] 50.0-59.9, adult; I82.411 Acute embolism and thrombosis of right femoral vein; I82.511 Chronic embolism and thrombosis of right femoral vein; I82.531 Chronic embolism and thrombosis of right popliteal vein; J45.909 Unspecified asthma, uncomplicated; F17.210 Nicotine dependence, cigarettes, uncomplicated; R91.1 Solitary pulmonary nodule; E66.01 Morbid (severe) obesity due to excess calories; Z88.5 Allergy status to narcotic agent; Z95.828 Presence of other vascular implants and grafts; Z79.01 Long term (current) use of anticoagulants; Z87.01 Personal history of pneumonia (recurrent); Z82.49 Family history of ischemic heart disease and other diseases of the circulatory system
CPT/HCPCS: 36415; 71275; 80048; 84484; 85025; 85027; 85520; 85610; 85730; 93971; 94640; 96374; J1644; J3010; J7613; J7620; Q9967; 99285-25; G0378

== ENCOUNTER 2019-12-08 15:51 | Emergency (ER) | payer OTHER ==
[~2019-12-08] VITALS: Ht 190.5 cm; Wt 181.4 kg
[~2019-12-08 15:51] MED LIST: ALBU2.5V8 IH; IPRA3AMP29 NEB; RIVA20TA2 PO
[2019-12-08] MEDS ORDERED: IPRATRPIUM/ALBUTEROL 0.5/2.5MG 3 ML NEBU. NEB STA (16:40)
[2019-12-08] MEDS ORDERED: methylPREDNISolone SOD SUCC PF 125 MG/2 ML VIAL. IV STA (16:40)
[2019-12-08] MEDS ORDERED: IV NORMAL SALINE 1000ML BAG 1,000 ML IV ONE (16:45)
--- NOTE | 2019-12-08 16:46 | PHYS DOC ---
Past Medical History Past Medical History: Asthma, Bronchitis, Coagulopathy, Pneumonia Additional Past Medical Histor: LUPUS ANTICOAGULANT SYNDROME, HYPOGYCEMIA, IVC FILTER, RIGHT GROIN STENT (DANA JENSEN APRN) Additional Past Surgical Histo: right common femoral stenting, vena cava filter (DANA JENSEN APRN) Alcohol Use: Rarely (DANA JENSEN APRN) Adult General Chief Complaint Chief Complaint: SHORTNESS OF BREATH HPI HPI Patient is a 44 year old male who presents with shortness of breath, cough, runny nose, congestion as been ongoing 3 days. Patient also is having chest pain yesterday, and some left shoulder pain. 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 The patient was under also but has ran out of this prescription and stopped taking it. The patient states that he has a history of anticoagulation disorder, unknown. Patient's been using albuterol solution inhaler at home, to the treatment 3 hours ago. He states that this helped. (DANA JENSEN APRN) Review of Systems Review of Systems Constitutional: Denies fever or chills [] Eyes: Denies change in visual acuity, redness, or eye pain [] HENT: Reports nasal congestion but denies sore throat [] Respiratory: Reports cough and shortness of breath [] Cardiovascular: No additional information not addressed in HPI [] GI: Denies abdominal pain, nausea, vomiting, bloody stools or diarrhea [] : Denies dysuria or hematuria [] Musculoskeletal: Denies back pain or joint pain [] Integument: Denies rash or skin lesions [] Neurologic: Denies headache, focal weakness or sensory changes [] Endocrine: Denies polyuria or polydipsia [] Complete systems were reviewed and found to be within normal limits, except as documented in this note. (DANA JENSEN APRN) Current Medications Current Medications Current Medications Medications (Trade) Dose Ordered Sig/Cecil Start Time Stop Time Status Last Admin Dose Admin Albuterol/ Ipratropium (Duoneb) 3 ml 1X STAT 12/08/19 16:40 12/08/19 16:45 DC 12/08/19 16:46 3 ML Iohexol (Omnipaque 350 Mg/ml) 100 ml 1X ONCE 12/08/19 18:15 12/08/19 18:16 DC 12/08/19 18:14 100 ML Methylprednisolone Sodium Succinate (SOLU-Medrol 125MG VIAL) 125 mg 1X STAT 12/08/19 16:40 12/08/19 16:45 DC 12/08/19 17:49 125 MG Sodium Chloride 1,000 ml @ 1,000 mls/hr 1X ONCE 12/08/19 16:45 12/08/19 17:44 DC 12/08/19 17:49 1,000 MLS/HR (BHUPENDRA RAYA MD) Allergies Allergies Allergies Coded Allergies Type Severity Reaction Last Updated Verified morphine Adverse Reaction Intermediate Nausea 09/13/19 Yes (BHUPENDRA RAYA MD) Physical Exam Physical Exam Constitutional: Well developed, well nourished, no acute distress, non-toxic appearance. [] HENT: Normocephalic, atraumatic, bilateral external ears normal, oropharynx moist, no oral exudates, nose inflamed. Eyes: PERRLA, EOMI, conjunctiva normal, no discharge. [] Neck: Normal range of motion, no tenderness, supple, no stridor. [] Cardiovascular:Heart rate regular rhythm, no murmur [] Lungs & Thorax: Bilateral breath sounds clear to auscultation [] Abdomen: Bowel sounds normal, soft, no tenderness, no masses, no pulsatile masses. [] Skin: Warm, dry, no erythema, no rash. [] Neurologic: Alert and oriented X 3, normal motor function, normal sensory function, no focal deficits noted. [] Psychologic: Affect normal, judgement normal, mood normal. [] (DANA JENSEN APRN) Current Patient Data Vital Signs Vital Signs Date Time Temp Pulse Resp B/P (MAP) Pulse Ox O2 Delivery O2 Flow Rate FiO2 12/08/19 18:45 88 19 129/58 (81) 95 Room Air 12/08/19 16:43 98.8 98.8 (BHUPENDRA RAYA MD) Lab Values Laboratory Tests Test 12/08/19 17:25 White Blood Count 9.1 x10^3/uL (4.0-11.0) Red Blood Count 5.08 x10^6/uL (4.30-5.70) Hemoglobin 16.4 g/dL (13.0-17.5) Hematocrit 47.8 % (39.0-53.0) Mean Corpuscular Volume 94 fL (79-100) Mean Corpuscular Hemoglobin 32 pg (25-35) Mean Corpuscular Hemoglobin Concent 34 g/dL (31-37) Red Cell Distribution Width 14.0 % (11.5-14.5) Platelet Count 152 x10^3/uL (140-400) Neutrophils (%) (Auto) 61 % (31-73) Lymphocytes (%) (Auto) 25 % (24-48) Monocytes (%) (Auto) 12 % (0-9) H Eosinophils (%) (Auto) 2 % (0-3) Basophils (%) (Auto) 1 % (0-3) Neutrophils # (Auto) 5.5 x10^3/uL (1.8-7.7) Lymphocytes # (Auto) 2.3 x10^3/uL (1.0-4.8) Monocytes # (Auto) 1.1 x10^3/uL (0.0-1.1) Eosinophils # (Auto) 0.2 x10^3/uL (0.0-0.7) Basophils # (Auto) 0.1 x10^3/uL (0.0-0.2) Prothrombin Time 12.9 SEC (11.7-14.0) Prothrombin Time INR 1.0 (0.8-1.1) Activated Partial Thromboplast Time 31 SEC (24-38) D-Dimer (Rosalba) 0.78 ug/mlFEU (0.00-0.50) H Sodium Level 138 mmol/L (136-145) Potassium Level 4.1 mmol/L (3.5-5.1) Chloride Level 101 mmol/L (98-107) Carbon Dioxide Level 28 mmol/L (21-32) Anion Gap 9 (6-14) Blood Urea Nitrogen 12 mg/dL (8-26) Creatinine 1.3 mg/dL (0.7-1.3) Estimated GFR (Cockcroft-Gault) 59.4 BUN/Creatinine Ratio 9 (6-20) Glucose Level 111 mg/dL (70-99) H Lactic Acid Level 1.1 mmol/L (0.4-2.0) Calcium Level 8.9 mg/dL (8.5-10.1) Magnesium Level 1.9 mg/dL (1.8-2.4) Total Bilirubin 0.4 mg/dL (0.2-1.0) Aspartate Amino Transferase (AST) 36 U/L (15-37) Alanine Aminotransferase (ALT) 44 U/L (16-63) Alkaline Phosphatase 105 U/L (46-116) Troponin I Quantitative < 0.017 ng/mL (0.000-0.055) WX-Otc-V-Type Natriuretic Peptide 19 pg/mL (0-124) Total Protein 7.3 g/dL (6.4-8.2) Albumin 3.0 g/dL (3.4-5.0) L Albumin/Globulin Ratio 0.7 (1.0-1.7) L Procalcitonin < 0.10 ng/mL (0.00-0.10) Influenza Type A Antigen Negative (NEGATIVE) Influenza Type B Antigen Negative (NEGATIVE) Laboratory Tests 12/08/19 17:25 Laboratory Tests 12/08/19 17:25 (BHUPENDRA RAYA MD) Lab Values Laboratory Tests Test 12/08/19 17:25 White Blood Count 9.1 x10^3/uL (4.0-11.0) Red Blood Count 5.08 x10^6/uL (4.30-5.70) Hemoglobin 16.4 g/dL (13.0-17.5) Hematocrit 47.8 % (39.0-53.0) Mean Corpuscular Volume 94 fL (79-100) Mean Corpuscular Hemoglobin 32 pg (25-35) Mean Corpuscular Hemoglobin Concent 34 g/dL (31-37) Red Cell Distribution Width 14.0 % (11.5-14.5) Platelet Count 152 x10^3/uL (140-400) Neutrophils (%) (Auto) 61 % (31-73) Lymphocytes (%) (Auto) 25 % (24-48) Monocytes (%) (Auto) 12 % (0-9) H Eosinophils (%) (Auto) 2 % (0-3) Basophils (%) (Auto) 1 % (0-3) Neutrophils # (Auto) 5.5 x10^3/uL (1.8-7.7) Lymphocytes # (Auto) 2.3 x10^3/uL (1.0-4.8) Monocytes # (Auto) 1.1 x10^3/uL (0.0-1.1) Eosinophils # (Auto) 0.2 x10^3/uL (0.0-0.7) Basophils # (Auto) 0.1 x10^3/uL (0.0-0.2) Prothrombin Time 12.9 SEC (11.7-14.0) Prothrombin Time INR 1.0 (0.8-1.1) Activated Partial Thromboplast Time 31 SEC (24-38) D-Dimer (Rosalba) 0.78 ug/mlFEU (0.00-0.50) H Sodium Level 138 mmol/L (136-145) Potassium Level 4.1 mmol/L (3.5-5.1) Chloride Level 101 mmol/L (98-107) Carbon Dioxide Level 28 mmol/L (21-32) Anion Gap 9 (6-14) Blood Urea Nitrogen 12 mg/dL (8-26) Creatinine 1.3 mg/dL (0.7-1.3) Estimated GFR (Cockcroft-Gault) 59.4 BUN/Creatinine Ratio 9 (6-20) Glucose Level 111 mg/dL (70-99) H Lactic Acid Level 1.1 mmol/L (0.4-2.0) Calcium Level 8.9 mg/dL (8.5-10.1) Magnesium Level 1.9 mg/dL (1.8-2.4) Total Bilirubin 0.4 mg/dL (0.2-1.0) Aspartate Amino Transferase (AST) 36 U/L (15-37) Alanine Aminotransferase (ALT) 44 U/L (16-63) Alkaline Phosphatase 105 U/L (46-116) Troponin I Quantitative < 0.017 ng/mL (0.000-0.055) TZ-Bqe-B-Type Natriuretic Peptide 19 pg/mL (0-124) Total Protein 7.3 g/dL (6.4-8.2) Albumin 3.0 g/dL (3.4-5.0) L Albumin/Globulin Ratio 0.7 (1.0-1.7) L Influenza Type A Antigen Negative (NEGATIVE) Influenza Type B Antigen Negative (NEGATIVE) Laboratory Tests 12/08/19 17:25 Laboratory Tests 12/08/19 17:25 (DANA JENSEN APRN) EKG EKG [] (DANA JENSEN APRN) Radiology/Procedures Radiology/Procedures [facility] [address] [place] [address] IMAGING REPORT Signed PATIENT: SPARKLE RODRIGUEZACCOUNT: [id number] : 1975 LOCATION: ER AGE: 44 SEX: M EXAM STATUS: REG ER ORD. PHYSICIAN: DANA JENSEN APRN REASON: shortness of breath, elevated d-dimer PROCEDURE: CT ANGIOGRAPHY CHEST Exam: CT of chest with contrast INDICATION: Shortness of breath TECHNIQUE: Sequential axial images through the chest obtained following the administration of 100 mL of Omni 350 IV contrast. Sagittal and coronal reformatted images were reconstructed from the axial data and reviewed. 3-D reformatted images were reconstructed from the axial data and reviewed. Comparisons: Chest x-ray 12/08/2019 FINDINGS: Visualized portions of the thyroid are unremarkable. No enlarged mediastinal lymph nodes are identified. Heart size is normal. No pericardial effusion. Thoracic aorta has normal course and caliber. Pulmonary artery is not enlarged. Evaluation for pulmonary embolus limited secondary to contrast bolus timing. No pulmonary embolus identified within the main or lobar pulmonary arteries. Airways are patent. Mild bronchial wall thickening is noted prominently centrally. No consolidation or pneumothorax. 5 mm nodule in the right middle lobe series 5 image 24. No pleural effusion or thickening. The liver has a mild nodularity to the contour.. Otherwise, visualized upper abdomen is unremarkable. No suspicious osseous lesions or acute fractures. IMPRESSION: 1. No pulmonary embolus identified within the main or lobar pulmonary arteries. Limitations as described above. 2. Bronchial wall thickening centrally, likely related to bronchitis. 3. A 5 mm nodule right middle lobe as described above. In a low-risk patient no further follow-up imaging is recommended. In a high-risk patient optional one-year follow-up CT can BE performed. 4. Undulation to the liver contour. Correlate with LFTs as this could be a finding in cirrhosis. Exposure: One or more of the following in the visualized dose reduction techniques were utilized for this examination: 1. Automated exposure control 2. Adjustment of the MA and/or KV according to patient size 3. Use of iterative of reconstructive technique Electronically signed by: Juan J Phoenix MD (12/08/2019 6:46 PM) [facility] DICTATED and SIGNED BY: JUAN J PHOENIX MD DATE: 12/08/19 1276 [][facility] [address] [place] [address] IMAGING REPORT Signed PATIENT: SPARKLE RODRIGUEZACCOUNT: [id number] : 1975 LOCATION: ER AGE: 44 SEX: M EXAM STATUS: REG ER ORD. PHYSICIAN: DANA JENSEN APRN REASON: cough, cp PROCEDURE: CHEST PA & LATERAL PA and lateral chest. HISTORY: Cough, chest pain PA and lateral views were taken of the chest. Lungs are free of confluent infiltrates. Heart is normal in size. There is no pleural effusion. IMPRESSION: 1. No acute infiltrates. Electronically signed by: Zeferino Hobbs MD (12/08/2019 5:52 PM) [facility] DICTATED and SIGNED BY: ZEFERINO HOBBS MD DATE: 12/08/19 346 (DANA JENSEN APRN) Course & Med Decision Making Course & Med Decision Making Pertinent Labs and Imaging studies reviewed. (See chart for details) Will get labs, Chest x-ray, and supportive care. Will include a d-dimer for labs. D-dimer is elevated at 0.78. Will order CT of Chest. Labs are otherwise unrema rkable. Flu is negative. CT chest is unremarkable. Will write refill patient Xarelto 20 mg daily and Albuterol solution as he is out. (DANA JENSEN APRN) Course & Med Decision Making Staff Physician Addendum: I was working in the ER during the course of this patient's visit. I was available for consultation as needed, but I was not directly involved in the care of this patient. (BHUPENDRA RAYA MD) Dragon Disclaimer Dragon Disclaimer This electronic medical record was generated, in whole or in part, using a voice recognition dictation system. (DANA JENSEN APRN) Departure Departure Impression: Primary Impression: Bronchitis Additional Impressions: Asthma exacerbation Medication refill Disposition: HOME, SELF-CARE Condition: STABLE Referrals: NO PCP (PCP) Patient Instructions: Asthma Attacks, Prevention, Asthma, Adult Additional Instructions: Thank you for visiting [facility]. We appreciate you trusting us with your care. If any additional problems come up don't hesitate to return to visit us. Please follow up with your primary care provider so they can plan additional care if needed and know about the problem that you had. If symptoms worsen come back to the Emergency Department. Any concerning symptoms that start such as chest pain, shortness of air, weakness or numbness on one side of the body, running high fevers or any other concerning symptoms return to the ER. Please fill your medications at any pharmacy and follow the prescription instructions. Scripts Methylprednisolone (MEDROL) 4 Mg Tab.ds.pk 1 PKG PO UD, #1 PKG Prov: DANA JENSEN APRN 12/08/19 Albuterol Sulfate (ALBUTEROL SULFATE CONC NEB SOLN) 2.5 Mg/0.5 Ml Vial.neb 1 VIAL NEB Q6HRS PRN for WHEEZING, #120 VIAL 0 Refills Prov: DANA JENSEN APRN 12/08/19 Rivaroxaban (XARELTO) 20 Mg Tablet 1 TAB PO DAILY for 30 Days, #30 TAB 0 Refills with food Prov: DANA JENSEN APRN 12/08/19 Problem Qualifiers Additional Impressions: Asthma exacerbation Asthma severity: moderate DANA JENSEN APRN Dec 08, 2019 16:46 BHUPENDRA RAYA MD Dec 09, 2019 09:50
[2019-12-08 17:33] LABS: BASO # 0.1 x10^3/uL (0.0-0.2); BASO % 1 % (0-3); EOS # 0.2 x10^3/uL (0.0-0.7); EOS % 2 % (0-3); HEMATOCRIT 47.8 % (39.0-53.0); HEMOGLOBIN 16.4 g/dL (13.0-17.5); LYMPH # 2.3 x10^3/uL (1.0-4.8); LYMPH % 25 % (24-48); MEAN CORPUSCULAR HEMOGLOBIN 32 pg (25-35); MEAN CORPUSCULAR HGB CONC 34 g/dL (31-37); MEAN CORPUSCULAR VOLUME 94 fL (79-100); MONO # 1.1 x10^3/uL (0.0-1.1); MONO % 12 % (0-9); NEUT # 5.5 x10^3/uL (1.8-7.7); NEUT % 61 % (31-73); PLATELET COUNT 152 x10^3/uL (140-400); RED BLOOD COUNT 5.08 x10^6/uL (4.30-5.70); WHITE BLOOD COUNT 9.1 x10^3/uL (4.0-11.0)
[2019-12-08 17:45] LABS: PROTHROMBIN TIME PATIENT 12.9 SEC (11.7-14.0)
--- NOTE | 2019-12-08 17:56 | RAD ---
PA and lateral chest. HISTORY: Cough, chest pain PA and lateral views were taken of the chest. Lungs are free of confluent infiltrates. Heart is normal in size. There is no pleural effusion. IMPRESSION: 1. No acute infiltrates. Electronically signed by: Zeferino Hobbs MD (12/08/2019 5:52 PM) [id number]
[2019-12-08 17:58] LABS: CALCIUM 8.9 mg/dL (8.5-10.1); CREATININE 1.3 mg/dL (0.7-1.3); GFR 59.4; POTASSIUM 4.1 mmol/L (3.5-5.1)
[2019-12-08 18:04] LABS: ALBUMIN/GLOBULIN RATIO 0.7 (1.0-1.7); MAGNESIUM 1.9 mg/dL (1.8-2.4); TOTAL BILIRUBIN 0.4 mg/dL (0.2-1.0); TOTAL PROTEIN 7.3 g/dL (6.4-8.2)
[2019-12-08] MEDS ORDERED: IOHEXOL 350 MG/ML 100 ML VIAL. IV ONE (18:15)
[2019-12-08 18:23] LABS: INFLUENZA A PATIENT NEGATIVE (NEGATIVE); INFLUENZA B PATIENT NEGATIVE (NEGATIVE)
[2019-12-08 18:45] VITALS: BP 129/58
--- NOTE | 2019-12-08 18:49 | RAD ---
Exam: CT of chest with contrast INDICATION: Shortness of breath TECHNIQUE: Sequential axial images through the chest obtained following the administration of 100 mL of Omni 350 IV contrast. Sagittal and coronal reformatted images were reconstructed from the axial data and reviewed. 3-D reformatted images were reconstructed from the axial data and reviewed. Comparisons: Chest x-ray 12/08/2019 FINDINGS: Visualized portions of the thyroid are unremarkable. No enlarged mediastinal lymph nodes are identified. Heart size is normal. No pericardial effusion. Thoracic aorta has normal course and caliber. Pulmonary artery is not enlarged. Evaluation for pulmonary embolus limited secondary to contrast bolus timing. No pulmonary embolus identified within the main or lobar pulmonary arteries. Airways are patent. Mild bronchial wall thickening is noted prominently centrally. No consolidation or pneumothorax. 5 mm nodule in the right middle lobe series 5 image 24. No pleural effusion or thickening. The liver has a mild nodularity to the contour.. Otherwise, visualized upper abdomen is unremarkable. No suspicious osseous lesions or acute fractures. IMPRESSION: 1. No pulmonary embolus identified within the main or lobar pulmonary arteries. Limitations as described above. 2. Bronchial wall thickening centrally, likely related to bronchitis. 3. A 5 mm nodule right middle lobe as described above. In a low-risk patient no further follow-up imaging is recommended. In a high-risk patient optional one-year follow-up CT can BE performed. 4. Undulation to the liver contour. Correlate with LFTs as this could be a finding in cirrhosis. Exposure: One or more of the following in the visualized dose reduction techniques were utilized for this examination: 1. Automated exposure control 2. Adjustment of the MA and/or KV according to patient size 3. Use of iterative of reconstructive technique Electronically signed by: Juan J Larkin MD (12/08/2019 6:46 PM) [facility]
[2019-12-08] MEDS ORDERED: ALBU2.5V14 NEB (18:55)
[2019-12-08] MEDS ORDERED: RIVA20TA2 PO (18:55)
[2019-12-08] MEDS ORDERED: METH4TAB2 PO (18:56)
--- NOTE | 2019-12-09 05:47 | EKG ---
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
== END 2019-12-08 19:14 | disposition home or self-care (01) ==
LOC: ER 15:51
DX: J45.41 Moderate persistent asthma with (acute) exacerbation (principal); R07.89 Other chest pain; R09.89 Other specified symptoms and signs involving the circulatory and respiratory systems; M25.512 Pain in left shoulder; J45.909 Unspecified asthma, uncomplicated; Z86.2 Personal history of diseases of the blood and blood-forming organs and certain disorders involving the immune mechanism; Z98.890 Other specified postprocedural states; Z88.6 Allergy status to analgesic agent; Z76.0 Encounter for issue of repeat prescription
CPT/HCPCS: 36415; 71046; 71275; 80053; 83605; 83735; 83880; 84145; 84484; 85025; 85379; 85610; 85730; 87804; 93005; 94640; 96374; 99285; J2930; J7030; J7620; Q9967

== ENCOUNTER 2020-03-05 17:27 | Inpatient (IN) | payer OTHER ==
[~2020-03-05] VITALS: Ht 190.5 cm; Wt 184.0 kg
[~2020-03-05 17:27] MED LIST changes: +ALBU2.5V14 NEB; +METH4TAB2 PO
[2020-03-05] MEDS ORDERED: IV NORMAL SALINE 1000ML BAG 1,000 ML IV ONE ×4 (18:00→20:00)
--- NOTE | 2020-03-05 18:05 | PHYS DOC ---
Past Medical History Past Medical History: Asthma, Bronchitis, Coagulopathy, DVT, Pneumonia Additional Past Medical Histor: LUPUS ANTICOAGULANT SYNDROME, HYPOGYCEMIA, IVC FILTER, RIGHT GROIN STENT (LEXUS ANGULO APRN) Additional Past Surgical Histo: right common femoral stenting, vena cava filter (LEXUS ANGULO APRN) Smoking Status: Current Every Day Smoker Alcohol Use: Rarely (LEXUS ANGULO APRN) Attending Signature I have participated in the care of this patient and I have reviewed and agree with all pertinent clinical information above including history, exam, and recommendations. (ERIBERTO SORTO MD) General Adult EDM: Chief Complaint: HYPERGLYCEMIA HPI: HPI: Patient is a 44 year old male with history of bronchitis, asthma, DVT with coagulopathy disorder, on Xarelto who presents to the ED today complaining of high blood glucose. Patient reports he has history of hypoglycemia, he states for the last 1 day he has had polydipsia and polyuria, he states today his mother decided to check his blood sugar, the number was too high to be read by machine. Patient states he recently moved from [place] (6 months ago) (LEXUS ANGULO APRN) Review of Systems: Review of Systems: Constitutional: Denies fever or chills. [] Eyes: Denies change in visual acuity. [] HENT: Denies nasal congestion or sore throat. [] Respiratory: Denies cough or shortness of breath. [] Cardiovascular: Denies chest pain or edema. [] GI: Denies abdominal pain, nausea, vomiting, bloody stools or diarrhea. [] : Denies dysuria. [] Musculoskeletal: Denies back pain or joint pain. [] Integument: Denies rash. [] Neurologic: Denies headache, focal weakness or sensory changes. [] Endocrine: Reports polyuria and polydipsia. [] Psychiatric: Denies depression or anxiety. [] (LEXUS ANGULO APRN) Heart Score: Risk Factors: Risk Factors: DM, Current or recent (<one month) smoker, HTN, HLP, family history of CAD, obesity. Risk Scores: Score 0 - 3: 2.5% MACE over next 6 weeks - Discharge Home Score 4 - 6: 20.3% MACE over next 6 weeks - Admit for Clinical Observation Score 7 - 10: 72.7% MACE over next 6 weeks - Early Invasive Strategies (LEXUS ANGULO APRN) Allergies: Allergies: Allergies Coded Allergies Type Severity Reaction Last Updated Verified morphine Adverse Reaction Intermediate Nausea 09/13/19 Yes (LEXUS ANGULO APRN) Physical Exam: PE: Constitutional: Morbidly obese patient, no acute distress, non-toxic appearance. [] HENT: Normocephalic, atraumatic, bilateral external ears normal, oropharynx moist, no oral exudates, nose normal. Severely decayed and broken teeth. Eyes: PERRLA, EOMI, conjunctiva normal, no discharge. [] Neck: Normal range of motion, no tenderness, supple, no stridor. [] Cardiovascular:Heart rate regular rhythm, no murmur [] Lungs & Thorax: Bilateral breath sounds clear to auscultation [] Abdomen: Bowel sounds normal, soft, no tenderness, no masses, no pulsatile masses. [] Skin: Warm, dry, no erythema, no rash. [] Back: No tenderness, no CVA tenderness. [] Extremities: No tenderness, no cyanosis, no clubbing, ROM intact, no edema. [] Neurologic: Alert and oriented X 3, normal motor function, normal sensory function, no focal deficits noted. [] Psychologic: Affect normal, judgement normal, mood normal. [] (LEXUS ANGULO APRN) EKG: EKG: [] (LEXUS ANGULO APRN) Radiology/Procedures: Radiology/Procedures: [] (LEXUS ANGULO APRN) Course & Med Decision Making: Course & Med Decision Making Pertinent Labs and Imaging studies reviewed. (See chart for details) This is a 44-year-old male patient presenting to the ED today complaining of hyperglycemia, reports history of hypoglycemia but has had polyuria and polydipsia for 1 day. He is morbidly obese. Vitals on arrival to the ED blood pressure 177/91 heart rate 100 temperature 98.7 O2 sats 95% on room air respiration 18. CBC with no acute findings, CMP with creatinine 1.4, BUN is normal, glucose 711, anion gap is 14, Na is 126 but corrected for hyperglycemia it comes to 136. Urine with no ketones. AST 140, ALT 66, ALK 230. Patient has no abdominal pain. Patient was given 3 L of IV fluids in the ED, 10 units of insulin. Spoke with Dr. Cr who accepted patient for admission. (LEXUS ANGULO APRN) Dragon Disclaimer: Dragashkan Disclaimer: This electronic medical record was generated, in whole or in part, using a voice recognition dictation system. (LEXUS ANGULO APRN) Departure Departure Impression: Primary Impression: Type 2 diabetes mellitus Qualified Codes: E11.69 - Type 2 diabetes mellitus with other specified complication Additional Impressions: Hyperglycemia Transaminitis Referrals: NO PCP (PCP) LEXUS ANGULO APRN Mar 05, 2020 18:05 ERIBERTO SORTO MD Mar 05, 2020 22:56
[2020-03-05 18:15] LABS: BILIRUBIN,URINE NEGATIVE (NEG); CLARITY,URINE CLEAR; COLOR,URINE YELLOW; NITRITE,URINE NEGATIVE (NEG); PH,URINE 5.5 (<5.0-8.0); PROTEIN,URINE NEGATIVE (NEG-TRACE); UROBILINOGEN,URINE 0.2 mg/dL (0.2 mg/dL)
[2020-03-05 18:18] LABS: BASO # 0.1 x10^3/uL (0.0-0.2); BASO % 1 % (0-3); EOS # 0.1 x10^3/uL (0.0-0.7); EOS % 1 % (0-3); HEMATOCRIT 45.6 % (39.0-53.0); HEMOGLOBIN 15.9 g/dL (13.0-17.5); LYMPH # 1.9 x10^3/uL (1.0-4.8); LYMPH % 22 % (24-48); MEAN CORPUSCULAR HEMOGLOBIN 33 pg (25-35); MEAN CORPUSCULAR HGB CONC 35 g/dL (31-37); MEAN CORPUSCULAR VOLUME 94 fL (79-100); MONO # 1.2 x10^3/uL (0.0-1.1); MONO % 14 % (0-9); NEUT # 5.5 x10^3/uL (1.8-7.7); NEUT % 62 % (31-73); PLATELET COUNT 138 x10^3/uL (140-400); RED BLOOD COUNT 4.85 x10^6/uL (4.30-5.70); RED CELL DISTRIBUTION WIDTH 13.2 % (11.5-14.5); WHITE BLOOD COUNT 8.8 x10^3/uL (4.0-11.0)
[2020-03-05 18:33] LABS: BACTERIA,URINE 0 /HPF (0-FEW); SQUAMOUS EPITHELIAL CELL,UR FEW /LPF; WBC,URINE 0 /HPF (0-4)
[2020-03-05 18:37] LABS: ALBUMIN 3.5 g/dL (3.4-5.0); ALBUMIN/GLOBULIN RATIO 0.9 (1.0-1.7); TOTAL PROTEIN 7.4 g/dL (6.4-8.2)
[2020-03-05 18:38] LABS: CALCIUM 9.5 mg/dL (8.5-10.1); CREATININE 1.4 mg/dL (0.7-1.3); GFR 54.6; POTASSIUM 4.5 mmol/L (3.5-5.1); TOTAL BILIRUBIN 0.9 mg/dL (0.2-1.0)
[2020-03-05] MEDS ORDERED: INSULIN REGULAR 100 UNIT/ML 3ML VIAL. IV ONE (19:00)
[2020-03-05 19:08] LABS: BARBITURATES NEG (NEG); BENZODIAZEPINES NEG (NEG); CANNABINOIDS NEG (NEG); COCAINE NEG (NEG); METHADONE NEG (NEG); OPIATES NEG (NEG); PHENCYCLIDINE NEG (NEG)
[2020-03-05 19:19] LABS: AMPHETAMINE/METHAMPHETAMINE NEG (NEG)
[2020-03-05] MEDS ORDERED: DEXTROSE 50% 25 GM / 50ML DISP.SYRIN. IV PRN (20:00)
[2020-03-05] MEDS ORDERED: ACETAMINOPHEN 325 MG TABLET. PO PRN (20:00)
[2020-03-05] MEDS: IPRATRPIUM/ALBUTEROL 0.5/2.5MG 3 ML NEBU. NEB SCH (20:00)
[2020-03-05] MEDS ORDERED: ONDANSETRON PF 4 MG/2 ML VIAL. IV PRN (20:00)
--- NOTE | 2020-03-05 20:18 | NUR ---
The patient, SPARKLE RODRIGUEZ, 44 y/o, M admitted by YASMANY PULLIAM MD, was given written information regarding hospital policies, unit procedures and contact persons. RN received report and patient was then transported from the ED to room 432 via gurney. RN performed a head to toe assessment at that time, VSS, afebrile and glucose was 495. Bed is in lowest locked position and call light is within reach. Valuables were checked and left in the room with the patient. RN will continue to monitor patient closely.
[2020-03-05 20:30] VITALS: BP 141/54
[2020-03-05] MEDS ORDERED: INSULIN LISPRO 300 UNITS/3 ML VIAL. SQ ONE (22:00)
[2020-03-05 23:00] VITALS: BP 123/63
[2020-03-06] MEDS ORDERED: INSULIN LISPRO 300 UNITS/3 ML VIAL. SQ ONE ×4 (00:30→14:15)
[2020-03-06 03:00] VITALS: BP 135/85
[2020-03-06] MEDS ORDERED: ALBUTEROL SULFATE 2.5 MG/3 ML NEBU. NEB PRN (03:45)
[2020-03-06 06:43] LABS: ALBUMIN/GLOBULIN RATIO 0.9 (1.0-1.7); CALCIUM 8.5 mg/dL (8.5-10.1); CREATININE 0.9 mg/dL (0.7-1.3); GFR 90.8; TOTAL BILIRUBIN 0.7 mg/dL (0.2-1.0); TOTAL PROTEIN 6.5 g/dL (6.4-8.2)
[2020-03-06] MEDS: IPRATRPIUM/ALBUTEROL 0.5/2.5MG 3 ML NEBU. NEB SCH ×3 (07:37→15:56)
[2020-03-06 07:51] VITALS: BP 125/74
[2020-03-06] MEDS: INSULIN LISPRO 300 UNITS/3 ML VIAL. SQ SCH ×2 (07:56→11:38)
[2020-03-06 10:34] VITALS: BP 138/88
--- NOTE | 2020-03-06 13:29 | SSS ---
ADMIT DATE: CHIEF COMPLAINT: Hyperglycemia. HISTORY OF PRESENT ILLNESS: The patient is a pleasant 44-year-old male who is diabetic, but states he does not have any meds at home. Basically presented with hyperglycemia. His glucose in the ER was as high as 495. He has now been admitted overnight. This morning, we got his sugar down into the 200 now it is back up to 364. I talked to nurse. We are going to give a bolus of some NovoLog and he would like to go home. PAST MEDICAL HISTORY: Diabetes, noncompliance, obesity, asthma, bronchitis, coagulopathy, DVT, pneumonia, hypoglycemia, IVC filter, right groin stent, lupus anticoagulant syndrome, right common femoral stenting, tobacco abuse. ALLERGIES: MORPHINE. FAMILY HISTORY: Coronary artery disease. SOCIAL HISTORY: He does not drink, smoke or take drugs. MEDICATIONS: Reviewed, please refer to the MRAD. REVIEW OF SYSTEMS: GENERAL: He complains of high glucose. SKIN: No bruising, hair changes or rashes. EYES: No blurred, double or loss of vision. NOSE AND THROAT: No history of nosebleeds, hoarseness or sore throat. HEART: No history of palpitations, chest pain or shortness of breath on exertion. LUNGS: Denies cough, hemoptysis, wheezing or shortness of breath. GASTROINTESTINAL: Denies changes in appetite, nausea, vomiting, diarrhea or constipation. GENITOURINARY: No history of frequency, urgency, hesitancy or nocturia. NEUROLOGIC: Denies history of numbness, tingling, tremor or weakness. PSYCHIATRIC: No history of panic, anxiety or depression. ENDOCRINE: No history of heat or cold intolerance, polyuria or polydipsia. EXTREMITIES: Denies muscle weakness, joint pain, pain on walking or stiffness. PHYSICAL EXAMINATION: VITALS: Within normal limits and are stable. GENERAL: He is overweight. HEENT: Normal cephalic atraumatic, external auditory canals are patent EYES: Extraocular muscles are intact, pupils are equally round and reactive to light and accommodation MUSCULOSKELETAL: Well developed, well nourished, good range of motion ENDOCRINE: No thyromegaly was palpated LYMPHATICS: No cervical chain or axillary nodes were noted HEMATOPOIETIC: No bruising NECK: Supple, no JVD, no thyromegaly was noted. LUNGS: Clear to auscultation in all lung neff without rhonchi or wheezing. HEART: RRR, S1, S2 present. Peripheral pulses intact, no obvious murmurs were noted. ABDOMEN: Soft, nontender. Positive bowel sounds no organomegaly, normal bowel sounds. EXTREMITIES: Without any cyanosis, clubbing, or edema. Pedal pulses intact, Homans sign is negative. NEUROLOGIC: Normal speech, normal tone. A & O x3, moves all extremities, no obvious focal deficits. PSYCHIATRIC: Normal affect, normal mood. Stable. SKIN: No ulcerations or rashes, good skin turgor, no jaundice. VASCULAR: Good capillary refill, neurovascular bundle appears to be intact. LABORATORY DATA: Glucose is down to 364. ASSESSMENT AND PLAN: Resolving hyperglycemia. We will give him another 30 units of NovoLog and hope to discharge this afternoon. I left prescriptions for NovoLog and Lantus. DISPOSITION: Home. ACTIVITY: As tolerated. DIET: Low sodium. MEDICATIONS: Please see MRAD. TOTAL TIME: 32 minutes. FABIENNE NORWOOD DO DR: LEDA/noni JOB#: [id number] / [id number]
[2020-03-06] MEDS ORDERED: glyBURIDE 5 MG TABLET PO ONE (14:15)
[2020-03-06 14:16] VITALS: BP 145/89
--- NOTE | 2020-03-06 16:30 | NUR ---
Discharge instructions and belongings reviewed with patient, verbalized understanding. Patient was escorted out via wheelchair by this RN.
== END 2020-03-06 16:30 | disposition home or self-care (01) | DRG 638 ==
LOC: ER 17:27 → 4 NORTH 20:00
PROVIDERS: ADMIT Family Medicine; ATTEND Family Medicine
DX: E11.65 Type 2 diabetes mellitus with hyperglycemia (principal); D68.62 Lupus anticoagulant syndrome; E11.69 Type 2 diabetes mellitus with other specified complication; J45.909 Unspecified asthma, uncomplicated; Z91.19 Patient's noncompliance with other medical treatment and regimen; Z87.891 Personal history of nicotine dependence; Z86.718 Personal history of other venous thrombosis and embolism; Z88.5 Allergy status to narcotic agent; Z82.49 Family history of ischemic heart disease and other diseases of the circulatory system
CPT/HCPCS: 36415; 80053; 80307; 81001; 82010; 82962; 85025; 94640; 94760; 99406; G0480; J1815; J7030; G0378; J7613

== ENCOUNTER 2020-08-30 19:14 | Inpatient (IN) | payer OTHER ==
[~2020-08-30] VITALS: Ht 190.5 cm; Wt 136.8 kg
[2020-08-30 21:13] LABS: BILIRUBIN,URINE SMALL (NEG); CLARITY,URINE CLEAR; COLOR,URINE YELLOW; NITRITE,URINE NEGATIVE (NEG); PROTEIN,URINE NEGATIVE (NEG-TRACE)
[2020-08-30 21:19] LABS: BACTERIA,URINE 0 /HPF (0-FEW); RBC,URINE RARE /HPF (0-2)
--- NOTE | 2020-08-30 23:07 | RAD ---
Exam: Right lower extremity venous duplex study INDICATION: Leg swelling TECHNIQUE: Using a combination of real-time ultrasound imaging and color-flow and pulse Doppler imaging techniques along with graded compression and augmentation, duplex evaluation of the deep venous systems of rightlower extremity was performed. Multiple images were obtained. Findings: Partially occlusive thrombus is noted within the right common femoral vein and right superficial femoral vein and right popliteal vein. Occlusive thrombus noted in the posterior tibial vein. IMPRESSION: Partially occlusive thrombus in the right common femoral vein, superficial femoral vein and popliteal vein. Occlusive thrombus in the posterior tibial vein. Electronically signed by: Juan J Larkin MD (08/30/2020 11:03 PM) JASON
[2020-08-30 23:08] LABS: BASO # 0.1 x10^3/uL (0.0-0.2); BASO % 1 % (0-3); EOS # 0.2 x10^3/uL (0.0-0.7); EOS % 1 % (0-3); HEMATOCRIT 43.4 % (39.0-53.0); HEMOGLOBIN 14.9 g/dL (13.0-17.5); LYMPH # 2.9 x10^3/uL (1.0-4.8); LYMPH % 19 % (24-48); MEAN CORPUSCULAR HEMOGLOBIN 31 pg (25-35); MEAN CORPUSCULAR HGB CONC 34 g/dL (31-37); MEAN CORPUSCULAR VOLUME 91 fL (79-100); MONO # 1.6 x10^3/uL (0.0-1.1); MONO % 11 % (0-9); NEUT # 10.3 x10^3/uL (1.8-7.7); NEUT % 68 % (31-73); PLATELET COUNT 259 x10^3/uL (140-400); RED BLOOD COUNT 4.77 x10^6/uL (4.30-5.70); RED CELL DISTRIBUTION WIDTH 12.6 % (11.5-14.5); WHITE BLOOD COUNT 15.2 x10^3/uL (4.0-11.0)
[2020-08-30] MEDS ORDERED: HYDROmorphone 2 MG/ML VIAL IVP ONE ×2 (23:15→23:30)
[2020-08-30] MEDS ORDERED: HEPARIN for IV BOLUS 10,000 UNIT/10 ML VIAL. IV PRN (23:15)
[2020-08-30 23:20] LABS: CALCIUM 9.1 mg/dL (8.5-10.1); CREATININE 1.1 mg/dL (0.7-1.3); GFR 71.8; POTASSIUM 3.6 mmol/L (3.5-5.1)
[2020-08-30] MEDS ORDERED: IV NORMAL SALINE 1000ML BAG 1,000 ML IV ONE (23:30)
[2020-08-30] MEDS: HEPARIN for IV BOLUS 10,000 UNIT/10 ML VIAL. IV PRN (23:45)
[2020-08-30] MEDS: HEPARIN 25,000UTS/250ML PREMIX 250 ML IV PRN (23:52)
[2020-08-31] MEDS ORDERED: ZOLPIDEM 5 MG TABLET. PO PRN (00:45)
[2020-08-31] MEDS ORDERED: ACETAMINOPHEN 325 MG TABLET. PO PRN (00:45)
[2020-08-31] MEDS ORDERED: DOCUSATE SODIUM 100 MG CAPSULE. PO PRN (00:45)
[2020-08-31] MEDS ORDERED: ONDANSETRON PF 4 MG/2 ML VIAL. IV PRN (00:45)
[2020-08-31] MEDS ORDERED: ALBUTEROL SULFATE 2.5 MG/3 ML NEBU. NEB PRN ×2 (00:45→08:45)
[2020-08-31] MEDS ORDERED: LORazepam 0.5 MG TABLET PO PRN (00:45)
[2020-08-31] MEDS ORDERED: diphenhydrAMINE 50 MG/ML VIAL IVP PRN (00:45)
[2020-08-31] MEDS ORDERED: guaiFENesin ORAL 200 MG/10 ML LIQUID. PO PRN (00:45)
[2020-08-31 02:00] VITALS: BP 102/70
--- NOTE | 2020-08-31 02:19 | PHYS DOC ---
Past Medical History Past Medical History: Asthma, Bronchitis, Coagulopathy, DVT, Pneumonia Additional Past Medical Histor: LUPUS ANTICOAGULANT SYNDROME, HYPOGYCEMIA, IVC FILTER, RIGHT GROIN STENT Past Surgical History: Other Additional Past Surgical Histo: right common femoral stenting, vena cava filter Smoking Status: Current Every Day Smoker Alcohol Use: Rarely General Adult EDM: Chief Complaint: BACK PAIN - NO INJURY HPI: HPI: Patient is a 45 year old male who presents to the Emergency Room with back pain that radiates all the way down his leg with right leg swelling. Patient has a history of DVTs and pulmonary embolisms. He has been off his Xarelto for the last 2 weeks because he cannot afford it. He states it is over $500 a month and he was unable to afford that. He states this is started over the last couple days and the pain has gotten unbearable. He denies any chest pain or shortness of breath. He denies any trauma. He denies any urinary symptoms. Review of Systems: Review of Systems: Negative other than noted Heart Score: Risk Factors: Risk Factors: DM, Current or recent (<one month) smoker, HTN, HLP, family history of CAD, obesity. Risk Scores: Score 0 - 3: 2.5% MACE over next 6 weeks - Discharge Home Score 4 - 6: 20.3% MACE over next 6 weeks - Admit for Clinical Observation Score 7 - 10: 72.7% MACE over next 6 weeks - Early Invasive Strategies Allergies: Allergies: Allergies Coded Allergies Type Severity Reaction Last Updated Verified morphine Adverse Reaction Intermediate Nausea 09/13/19 Yes Physical Exam: PE: General: Awake, alert, NAD. Well Nourished, well hydrated. Cooperative HEENT: Atraumatic, EOMI, PERRL, airway patent, moist oral mucosa Neck: Supple, trachea midline Respiratory: CTA bilaterally, normal effort, no wheezing/crackles CV: RRR, no murmur, cap refill <2 GI: Soft, nondistended, nontender, no masses MSK: Right lower extremity: DP pulse 2+, swelling nonpitting and right lower leg, no erythema Skin: Warm, dry, intact Neuro: A&O x3, speech NL, sensory and motor grossly intact, no focal deficits Psych: Normal affect, normal mood, not suicidal or homicidal Current Patient Data: Labs: Laboratory Tests Test 08/30/20 21:00 08/30/20 22:15 Urine Collection Type Unknown Urine Color Yellow Urine Clarity Clear Urine pH 6.0 (<5.0-8.0) Urine Specific [place] 1.015 (1.000-1.030) Urine Protein Negative mg/dL (NEG-TRACE) Urine Glucose (UA) Negative mg/dL (NEG) Urine Ketones (Stick) Negative mg/dL (NEG) Urine Blood Negative (NEG) Urine Nitrite Negative (NEG) Urine Bilirubin Small (NEG) Urine Urobilinogen Dipstick 1.0 mg/dL (0.2 mg/dL) Urine Leukocyte Esterase Negative (NEG) Urine RBC Rare /HPF (0-2) Urine WBC 1-4 /HPF (0-4) Urine Squamous Epithelial Cells Mod /LPF Urine Bacteria 0 /HPF (0-FEW) Urine Mucus Marked /LPF White Blood Count 15.2 x10^3/uL (4.0-11.0) H Red Blood Count 4.77 x10^6/uL (4.30-5.70) Hemoglobin 14.9 g/dL (13.0-17.5) Hematocrit 43.4 % (39.0-53.0) Mean Corpuscular Volume 91 fL (79-100) Mean Corpuscular Hemoglobin 31 pg (25-35) Mean Corpuscular Hemoglobin Concent 34 g/dL (31-37) Red Cell Distribution Width 12.6 % (11.5-14.5) Platelet Count 259 x10^3/uL (140-400) Neutrophils (%) (Auto) 68 % (31-73) Lymphocytes (%) (Auto) 19 % (24-48) L Monocytes (%) (Auto) 11 % (0-9) H Eosinophils (%) (Auto) 1 % (0-3) Basophils (%) (Auto) 1 % (0-3) Neutrophils # (Auto) 10.3 x10^3/uL (1.8-7.7) H Lymphocytes # (Auto) 2.9 x10^3/uL (1.0-4.8) Monocytes # (Auto) 1.6 x10^3/uL (0.0-1.1) H Eosinophils # (Auto) 0.2 x10^3/uL (0.0-0.7) Basophils # (Auto) 0.1 x10^3/uL (0.0-0.2) Sodium Level 135 mmol/L (136-145) L Potassium Level 3.6 mmol/L (3.5-5.1) Chloride Level 98 mmol/L (98-107) Carbon Dioxide Level 29 mmol/L (21-32) Anion Gap 8 (6-14) Blood Urea Nitrogen 5 mg/dL (8-26) L Creatinine 1.1 mg/dL (0.7-1.3) Estimated GFR (Cockcroft-Gault) 71.8 Glucose Level 122 mg/dL (70-99) H Calcium Level 9.1 mg/dL (8.5-10.1) Laboratory Tests 08/30/20 22:15 Laboratory Tests 08/30/20 22:15 Vital Signs: Vital Signs Date Time Temp Pulse Resp B/P (MAP) Pulse Ox O2 Delivery O2 Flow Rate FiO2 08/31/20 02:00 99.3 90 16 102/70 (81) 96 Room Air 99.3 EKG: EKG: [] Radiology/Procedures: Radiology/Procedures: [] Course & Med Decision Making: Course & Med Decision Making Pertinent Labs and Imaging studies reviewed. (See chart for details) Patient is a 45-year-old male who presents to the emergency room complaining of swelling and pain that goes from his hip all the way down to his ankle. He has significant swelling. DVT study was ordered and patient has a significant DVT at this time. Patient will be started on heparin drip and will be admitted for further care and evaluation. Dragon Disclaimer: Dragon Disclaimer: This electronic medical record was generated, in whole or in part, using a voice recognition dictation system. Departure Departure Impression: Primary Impression: Right leg DVT Disposition: ADMITTED INPATIENT Condition: IMPROVED Referrals: NO PCP (PCP) ADRIAN HOBBS MD Aug 31, 2020 02:19
[2020-08-31] MEDS ORDERED: GLIP-24 PO (02:26)
[2020-08-31] MEDS ORDERED: METF10007 PO (02:26)
[2020-08-31] MEDS ORDERED: INSU100I13 SQ (02:27)
[2020-08-31] MEDS ORDERED: HYDROmorphone 2 MG/ML VIAL IVP ONE (04:30)
--- NOTE | 2020-08-31 06:35 | NUR ---
Patient received on unit accompanied by RN. VS stable, pain is rated a 3/10 for which he states is more so on his coccyx r/t sitting on edge of bed. Patient is currently on heparin drip 21.8 ml/hr, patient advised to only get out of bed with assistance d/t increased bleeding risk, patient VU. RN adds lab order for 0600 for UFH. Bed in low and locked position, call light within reach. Will continue to monitor.
[2020-08-31 07:00] VITALS: BP 102/51
[2020-08-31] MEDS: fentaNYL PF VIAL 100 MCG/2 ML VIAL IVP PRN ×2 (08:21→10:32)
[2020-08-31] MEDS ORDERED: NON FORMULARY ITEM (Albuterol Sulfate (Albuterol Sulfate Conc Neb Soln) 1 VIAL) NEB PRN (08:45)
[2020-08-31] MEDS ORDERED: ALBUTEROL SULFATE 2.5 MG/3 ML NEBU. INH PRN (08:45)
[2020-08-31] MEDS: glipiZIDE ER 2.5 MG TAB.ER.24 PO SCH (09:14)
[2020-08-31] MEDS: HEPARIN 25,000UTS/250ML PREMIX 250 ML IV PRN ×2 (10:41→21:56)
--- NOTE | 2020-08-31 10:41 | PDOC2 ---
CONSULT Date of Consult Date of Consult DATE: 08/31/20 TIME: 10:34 History of Present Illness Reason for Visit: This a 45-year-old male with a history of bilateral lower extremity chronic deep vein thrombosis with previous history of pulmonary embolisms. Due to financial reasons, the patient ran out of his Xarelto prescriptions. He presented with worsening pain in the right lower extremity. He has not been compliant with lower extremity compression stockings. The patient continues to smoke 1 to 2 packs/day and has done so for 30 years. He is extremely reluctant to quit smoking despite his multiple comorbidities including diabetes. Past Medical History Cardiovascular: HTN, Hyperlipidemia Pulmonary: Asthma, COPD Endocrine: Diabetes, Other (Morbid obesity) Family History Family History: Coronary Artery Disease, Diabetes, Hypertension Social History 1 pack per day (For the last 30 years) ALCOHOL: none Drugs: None Current Medications Current Medications Current Medications Hydromorphone HCl (Dilaudid) 1 mg 1X ONCE IVP Last administered on 08/30/20at 23:27; Start 08/30/20 at 23:15; Stop 08/30/20 at 23:16; Status DC Heparin Sodium/ Dextrose 250 ml @ 0 mls/hr CONT PRN IV PER PROTOCOL Last administered on 08/30/20at 23:52; Start 08/30/20 at 23:15 Heparin Sodium (Porcine) (Heparin Sodium) 4,100 unit PRN Q6HRS PRN IV FOR UFH LEVEL LESS THAN 0.2 Last administered on 08/30/20at 23:45; Start 08/30/20 at 23:15 Heparin Sodium (Porcine) (Heparin Sodium) 2,050 unit PRN Q6HRS PRN IV FOR UFH LEVEL 0.2 - 0.29 Last administered on 08/31/20at 08:14; Start 08/30/20 at 23:15 Sodium Chloride 1,000 ml @ 1,000 mls/hr 1X ONCE IV Last administered on 08/30/20at 23:28; Start 08/30/20 at 23:30; Stop 08/31/20 at 00:29; Status DC Hydromorphone HCl (Dilaudid) 1 mg 1X ONCE IVP ; Start 08/30/20 at 23:30; Stop 08/30/20 at 23:31; Status DC Ondansetron HCl (Zofran) 4 mg PRN Q4HRS PRN IV NAUSEA/VOMITING; Start 08/31/20 at 00:45 Zolpidem Tartrate (Ambien) 5 mg PRN QHS PRN PO INSOMNIA; Start 08/31/20 at 00:45 Acetaminophen (Tylenol) 650 mg PRN Q4HRS PRN PO TEMP OVER 100.4F OR MILD PAIN Last administered on 08/31/20at 10:32; Start 08/31/20 at 00:45 Diphenhydramine HCl (Benadryl) 25 mg PRN Q4HRS PRN IVP ITCHING; Start 08/31/20 at 00:45 Docusate Sodium (Colace) 100 mg PRN BID PRN PO HARD STOOLS; Start 08/31/20 at 00:45 Albuterol Sulfate (Ventolin Neb Soln) 2.5 mg PRN Q4HRS PRN NEB SHORTNESS OF BREATH; Start 08/31/20 at 00:45; Stop 08/31/20 at 08:42; Status DC Guaifenesin (Robitussin) 200 mg PRN Q4HRS PRN PO COUGH; Start 08/31/20 at 00:45 Lorazepam (Ativan) 0.5 mg PRN Q4HRS PRN PO ANXIETY / AGITATION; Start 08/31/20 at 00:45 Hydromorphone HCl (Dilaudid) 1 mg 1X ONCE IVP Last administered on 08/31/20at 04:23; Start 08/31/20 at 04:30; Stop 08/31/20 at 04:31; Status DC Fentanyl Citrate (Fentanyl 2ml Vial) 50 mcg PRN Q2HR PRN IVP PAIN Last administered on 08/31/20at 10:32; Start 08/31/20 at 08:15 Albuterol Sulfate (Ventolin Neb Soln) 8.5 mg Q6H PRN INH wheezing; Start 08/31/20 at 08:45; Status UNV Albuterol/ Ipratropium (Duoneb) 3 ml RTQID NEB ; Start 08/31/20 at 09:00 Non-Formulary Medication (Albuterol Sulfate (Albuterol Sulfate Conc Neb Soln)) 1 vial Q6HRS PRN NEB WHEEZING; Start 08/31/20 at 08:45; Status UNV Glipizide (Glucotrol Er) 5 mg DAILY08 PO Last administered on 08/31/20at 09:14; Start 08/31/20 at 09:00 Insulin Glargine (Lantus Syringe) 24 unit QHS SQ ; Start 08/31/20 at 21:00 Albuterol Sulfate (Ventolin Neb Soln) 2.5 mg PRN Q6HRS PRN NEB SHORTNESS OF BREATH; Start 08/31/20 at 08:45 Active Scripts Active Medrol (Methylprednisolone) 4 Mg Tab.ds.pk 1 Pkg PO UD Albuterol Sulfate Conc Neb Soln (Albuterol Sulfate) 2.5 Mg/0.5 Ml Vial.neb 1 Vial NEB Q6HRS PRN Xarelto (Rivaroxaban) 20 Mg Tablet 1 Tab PO DAILY 30 Days with food Reported Lantus Solostar (Insulin Glargine,Hum.rec.anlog) 100 Unit/1 Ml Insuln.pen 24 Unit SQ QHS Glipizide Xl (Glipizide) 5 Mg Tab.er.24 1 Tab PO DAILY 30 Days Metformin Hcl 1,000 Mg Tablet 1,000 Mg PO BIDWMEALS Duoneb 0.5-3(2.5) Mg/3 Ml (Albuterol/Ipratropium) 3 Ml Ampul.neb 3 Ml NEB QID Proair Hfa Inhaler (Albuterol Sulfate) 8.5 Gm Hfa.aer.ad 2 Puff IH PRN Q4-6HRS PRN 21 Days Xarelto (Rivaroxaban) 20 Mg Tablet 1 Tab PO DAILY 30 Days with food Allergies Allergies: Coded Allergies: morphine (Verified Adverse Reaction, Intermediate, Nausea, 09/13/19) ROS Musculoskeletal: Yes Swelling In: (Right lower extremity) Physical Exam General: Alert HEENT: Atraumatic, PERRLA, EOMI Lungs: Clear to auscultation, Normal air movement Heart: Regular rate, Normal S1, Normal S2 Abdomen: Normal bowel sounds, Soft, No tenderness, Other (Obese) Extremities: No clubbing, No cyanosis, Normal pulses, Other (Nonpitting edema of the right and left lower extremity) Skin: Other (Bilateral venous insufficiency skin changes, mild lipodermatosclerosis) Neuro: Normal speech, Strength at 5/5 X4 ext, Sensation intact, Cranial nerves 3-12 NL Psych/Mental Status: Mental status NL, Mood NL MUSCULOSKELETAL: No deformity, No muscular tenderness noted, Full range of motion without pain Vitals VITALS Vital Signs Date Time Temp Pulse Resp B/P (MAP) Pulse Ox O2 Delivery O2 Flow Rate FiO2 08/31/20 10:32 96 Room Air 08/31/20 07:00 98.8 77 18 102/51 (68) 98.8 Labs Labs Laboratory Tests Test 08/30/20 21:00 08/30/20 22:15 08/31/20 05:55 08/31/20 08:01 Urine Collection Type Unknown Urine Color Yellow Urine Clarity Clear Urine pH 6.0 (<5.0-8.0) Urine Specific [place] 1.015 (1.000-1.030) Urine Protein Negative mg/dL (NEG-TRACE) Urine Glucose (UA) Negative mg/dL (NEG) Urine Ketones (Stick) Negative mg/dL (NEG) Urine Blood Negative (NEG) Urine Nitrite Negative (NEG) Urine Bilirubin Small (NEG) Urine Urobilinogen Dipstick 1.0 mg/dL (0.2 mg/dL) Urine Leukocyte Esterase Negative (NEG) Urine RBC Rare /HPF (0-2) Urine WBC 1-4 /HPF (0-4) Urine Squamous Epithelial Cells Mod /LPF Urine Bacteria 0 /HPF (0-FEW) Urine Mucus Marked /LPF White Blood Count 15.2 x10^3/uL (4.0-11.0) Red Blood Count 4.77 x10^6/uL (4.30-5.70) Hemoglobin 14.9 g/dL (13.0-17.5) Hematocrit 43.4 % (39.0-53.0) Mean Corpuscular Volume 91 fL (79-100) Mean Corpuscular Hemoglobin 31 pg (25-35) Mean Corpuscular Hemoglobin Concent 34 g/dL (31-37) Red Cell Distribution Width 12.6 % (11.5-14.5) Platelet Count 259 x10^3/uL (140-400) Neutrophils (%) (Auto) 68 % (31-73) Lymphocytes (%) (Auto) 19 % (24-48) Monocytes (%) (Auto) 11 % (0-9) Eosinophils (%) (Auto) 1 % (0-3) Basophils (%) (Auto) 1 % (0-3) Neutrophils # (Auto) 10.3 x10^3/uL (1.8-7.7) Lymphocytes # (Auto) 2.9 x10^3/uL (1.0-4.8) Monocytes # (Auto) 1.6 x10^3/uL (0.0-1.1) Eosinophils # (Auto) 0.2 x10^3/uL (0.0-0.7) Basophils # (Auto) 0.1 x10^3/uL (0.0-0.2) Sodium Level 135 mmol/L (136-145) Potassium Level 3.6 mmol/L (3.5-5.1) Chloride Level 98 mmol/L (98-107) Carbon Dioxide Level 29 mmol/L (21-32) Anion Gap 8 (6-14) Blood Urea Nitrogen 5 mg/dL (8-26) Creatinine 1.1 mg/dL (0.7-1.3) Estimated GFR (Cockcroft-Gault) 71.8 Glucose Level 122 mg/dL (70-99) Calcium Level 9.1 mg/dL (8.5-10.1) Heparin Anti-Xa Act, Unfractionated 0.20 IU/mL (0.30-0.70) Glucose (Fingerstick) 124 mg/dL (70-99) Laboratory Tests Test 08/30/20 21:00 08/30/20 22:15 08/31/20 05:55 08/31/20 08:01 Urine Collection Type Unknown Urine Color Yellow Urine Clarity Clear Urine pH 6.0 (<5.0-8.0) Urine Specific [place] 1.015 (1.000-1.030) Urine Protein Negative mg/dL (NEG-TRACE) Urine Glucose (UA) Negative mg/dL (NEG) Urine Ketones (Stick) Negative mg/dL (NEG) Urine Blood Negative (NEG) Urine Nitrite Negative (NEG) Urine Bilirubin Small (NEG) Urine Urobilinogen Dipstick 1.0 mg/dL (0.2 mg/dL) Urine Leukocyte Esterase Negative (NEG) Urine RBC Rare /HPF (0-2) Urine WBC 1-4 /HPF (0-4) Urine Squamous Epithelial Cells Mod /LPF Urine Bacteria 0 /HPF (0-FEW) Urine Mucus Marked /LPF White Blood Count 15.2 x10^3/uL (4.0-11.0) Red Blood Count 4.77 x10^6/uL (4.30-5.70) Hemoglobin 14.9 g/dL (13.0-17.5) Hematocrit 43.4 % (39.0-53.0) Mean Corpuscular Volume 91 fL (79-100) Mean Corpuscular Hemoglobin 31 pg (25-35) Mean Corpuscular Hemoglobin Concent 34 g/dL (31-37) Red Cell Distribution Width 12.6 % (11.5-14.5) Platelet Count 259 x10^3/uL (140-400) Neutrophils (%) (Auto) 68 % (31-73) Lymphocytes (%) (Auto) 19 % (24-48) Monocytes (%) (Auto) 11 % (0-9) Eosinophils (%) (Auto) 1 % (0-3) Basophils (%) (Auto) 1 % (0-3) Neutrophils # (Auto) 10.3 x10^3/uL (1.8-7.7) Lymphocytes # (Auto) 2.9 x10^3/uL (1.0-4.8) Monocytes # (Auto) 1.6 x10^3/uL (0.0-1.1) Eosinophils # (Auto) 0.2 x10^3/uL (0.0-0.7) Basophils # (Auto) 0.1 x10^3/uL (0.0-0.2) Sodium Level 135 mmol/L (136-145) Potassium Level 3.6 mmol/L (3.5-5.1) Chloride Level 98 mmol/L (98-107) Carbon Dioxide Level 29 mmol/L (21-32) Anion Gap 8 (6-14) Blood Urea Nitrogen 5 mg/dL (8-26) Creatinine 1.1 mg/dL (0.7-1.3) Estimated GFR (Cockcroft-Gault) 71.8 Glucose Level 122 mg/dL (70-99) Calcium Level 9.1 mg/dL (8.5-10.1) Heparin Anti-Xa Act, Unfractionated 0.20 IU/mL (0.30-0.70) Glucose (Fingerstick) 124 mg/dL (70-99) Assessment/Plan Assessment/Plan 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 The patient should be changed to warfarin therapy as I believe this will be the most financially beneficial medication for the patient despite the blood monitoring required. I did order bilateral lower extremity graduated compression stockings and instructed him on how to utilize these. The patient understands that his lower extremity swelling will be chronic given his postphlebitic syndrome however will be improved with adherence to graduated compression stockings. No surgical intervention is indicated. COPD with active tobacco abuse--patient understands that if he continues to smoke, he is at markedly high risk of heart attack, stroke, limb loss, and . I presented smoking cessation alternatives to the patient which she declined. Currently he is in denial regarding the effects of smoking on his health and the significant chance of limb loss when coupled with his diabetes. Mor Mariscal DO, MOR HESTER DO Aug 31, 2020 10:41
--- NOTE | 2020-08-31 10:43 | PDOC1 ---
History and Physical Date of Admission Date of Admission 08/31/2020 Identification/Chief Complaint Problems: (1) Right leg DVT Source Source: Chart review, Patient History of Present Illness History of Present Illness Patient is a 45 year old male with past medical history of LUPUS anticoagulant with history of previous DVT who comes today complaining of loer extrmity pain as a consequence of an acute DVT. Patient was diagnosed with an acute thrombosis in pulmonary embolism and was placed on Xarelto couple months ago. The medication was being paid off by an assistance program but unfortunately the program ended and the cost for the patient is over $500 and he already pays $200 versus insulin. He was unable to afford this relative unresolved anticoagulation for the last two weeks. Patient presented sudden onset of exquisite pain over the right lower extremity thrombosis has been found, results of Doppler is as follows: Partially occlusive thrombus in the right common femoral vein, superficial femoral vein and popliteal vein. Occlusive thrombus in the posterior tibial vein. He is being admitted for further treatment. At the time my evaluation the patient is in no acute distress limits of some discomfort he just received fentanyl. The patient denies any chest pain or palpitations no shortness of breath is been reported no nausea vomiting no diarrhea no stroke like symptoms no headaches no other complaints voiced. Reassurance has been provided in the plan of care explained in detail. ED Adult General Template Patient Name: Diego Sotomayor Unit Number: [id number] Date of : 1975 Patient Status: Admitted Inpatient Attending Doctor: Dion Rodriguez MD Past Medical History Past Medical History Past Medical History: Asthma, Bronchitis, Coagulopathy, DVT, Pneumonia Additional Past Medical Histor: LUPUS ANTICOAGULANT SYNDROME, HYPOGYCEMIA, IVC FILTER, RIGHT GROIN STENT Past Surgical History: Other Additional Past Surgical Histo: right common femoral stenting, vena cava filter Smoking Status: Current Every Day Smoker Alcohol Use: Rarely General Adult General Adult EDM: Chief Complaint: BACK PAIN - NO INJURY HPI: HPI: Patient is a 45 year old male who presents to the Emergency Room with back pain that radiates all the way down his leg with right leg swelling. Patient has a history of DVTs and pulmonary embolisms. He has been off his Xarelto for the last 2 weeks because he cannot afford it. He states it is over $500 a month and he was unable to afford that. He states this is started over the last couple days and the pain has gotten unbearable. He denies any chest pain or shortness of breath. He denies any trauma. He denies any urinary symptoms. Past Medical History Pulmonary: Asthma Family History Family History: Hypertension Social History ALCOHOL: none Drugs: None Current Medications Current Medications Current Medications Medications (Trade) Dose Ordered Sig/Cecil Start Time Stop Time Status Last Admin Dose Admin Acetaminophen (Tylenol) 650 mg PRN Q4HRS PRN 08/31/20 00:45 08/31/20 10:32 650 MG Albuterol Sulfate (Ventolin Neb Soln) 2.5 mg PRN Q6HRS PRN 08/31/20 08:45 Albuterol/ Ipratropium (Duoneb) 3 ml RTQID 08/31/20 09:00 Diphenhydramine HCl (Benadryl) 25 mg PRN Q4HRS PRN 08/31/20 00:45 Docusate Sodium (Colace) 100 mg PRN BID PRN 08/31/20 00:45 Fentanyl Citrate (Fentanyl 2ml Vial) 50 mcg PRN Q2HR PRN 08/31/20 08:15 08/31/20 10:32 50 MCG Glipizide (Glucotrol Er) 5 mg DAILY08 08/31/20 09:00 08/31/20 09:14 5 MG Guaifenesin (Robitussin) 200 mg PRN Q4HRS PRN 08/31/20 00:45 Heparin Sodium (Porcine) (Heparin Sodium) 2,050 unit PRN Q6HRS PRN 08/30/20 23:15 08/31/20 08:14 2,050 UNIT Heparin Sodium/ Dextrose 250 ml @ 0 mls/hr CONT PRN 08/30/20 23:15 08/30/20 23:52 21.8 MLS/HR Hydromorphone HCl (Dilaudid) 1 mg 1X ONCE 08/31/20 04:30 08/31/20 04:31 DC 08/31/20 04:23 1 MG Insulin Glargine (Lantus Syringe) 24 unit QHS 08/31/20 21:00 Lorazepam (Ativan) 0.5 mg PRN Q4HRS PRN 08/31/20 00:45 Non-Formulary Medication (Albuterol Sulfate (Albuterol Sulfate Conc Neb Soln)) 1 vial Q6HRS PRN 08/31/20 08:45 UNV Ondansetron HCl (Zofran) 4 mg PRN Q4HRS PRN 08/31/20 00:45 Sodium Chloride 1,000 ml @ 1,000 mls/hr 1X ONCE 08/30/20 23:30 08/31/20 00:29 DC 08/30/20 23:28 1,000 MLS/HR Zolpidem Tartrate (Ambien) 5 mg PRN QHS PRN 08/31/20 00:45 Allergies Allergies Allergies Coded Allergies Type Severity Reaction Last Updated Verified morphine Adverse Reaction Intermediate Nausea 09/13/19 Yes ROS Review of System CONSTITUTIONAL: No fever or chills EYES: No recent changes SKIN: No rash or itching CARDIOVASCULAR: No chest pain, syncope, palpitations, or edema RESPIRATORY: No SOB or cough GASTROINTESTINAL: No nausea, vomiting or abdominal pain NEUROLOGICAL: No headaches or weakness ENDOCRINE: No cold or heat intolerance GENITOURINARY: No urgency or frequency of urination MUSCULOSKELETAL: No back pain or joint pain LYMPHATICS: No enlarged lymph nodes PSYCHIATRIC: No anxiety or depression Physical Exam Physical Exam GEN.: No apparent distress. Alert and oriented. HEENT: Head is normocephalic, atraumatic NECK: Supple. LUNGS: Clear to auscultation. HEART: RRR, S1, S2 present. Peripheral pulses intact ABDOMEN: Soft, nontender. Positive bowel sounds. EXTREMITIES: Without any cyanosis. NEUROLOGIC: Normal speech, normal tone PSYCHIATRIC: Normal affect, normal mood. SKIN: No ulcerations Vitals Vitals Vital Signs Date Time Temp Pulse Resp B/P (MAP) Pulse Ox O2 Delivery O2 Flow Rate FiO2 08/31/20 10:32 96 Room Air 08/31/20 07:00 98.8 77 18 102/51 (68) 98.8 Labs Labs Laboratory Tests Test 08/30/20 21:00 08/30/20 22:15 08/31/20 05:55 08/31/20 08:01 Urine Collection Type Unknown Urine Color Yellow Urine Clarity Clear Urine pH 6.0 (<5.0-8.0) Urine Specific [place] 1.015 (1.000-1.030) Urine Protein Negative mg/dL (NEG-TRACE) Urine Glucose (UA) Negative mg/dL (NEG) Urine Ketones (Stick) Negative mg/dL (NEG) Urine Blood Negative (NEG) Urine Nitrite Negative (NEG) Urine Bilirubin Small (NEG) Urine Urobilinogen Dipstick 1.0 mg/dL (0.2 mg/dL) Urine Leukocyte Esterase Negative (NEG) Urine RBC Rare /HPF (0-2) Urine WBC 1-4 /HPF (0-4) Urine Squamous Epithelial Cells Mod /LPF Urine Bacteria 0 /HPF (0-FEW) Urine Mucus Marked /LPF White Blood Count 15.2 x10^3/uL (4.0-11.0) Red Blood Count 4.77 x10^6/uL (4.30-5.70) Hemoglobin 14.9 g/dL (13.0-17.5) Hematocrit 43.4 % (39.0-53.0) Mean Corpuscular Volume 91 fL (79-100) Mean Corpuscular Hemoglobin 31 pg (25-35) Mean Corpuscular Hemoglobin Concent 34 g/dL (31-37) Red Cell Distribution Width 12.6 % (11.5-14.5) Platelet Count 259 x10^3/uL (140-400) Neutrophils (%) (Auto) 68 % (31-73) Lymphocytes (%) (Auto) 19 % (24-48) Monocytes (%) (Auto) 11 % (0-9) Eosinophils (%) (Auto) 1 % (0-3) Basophils (%) (Auto) 1 % (0-3) Neutrophils # (Auto) 10.3 x10^3/uL (1.8-7.7) Lymphocytes # (Auto) 2.9 x10^3/uL (1.0-4.8) Monocytes # (Auto) 1.6 x10^3/uL (0.0-1.1) Eosinophils # (Auto) 0.2 x10^3/uL (0.0-0.7) Basophils # (Auto) 0.1 x10^3/uL (0.0-0.2) Sodium Level 135 mmol/L (136-145) Potassium Level 3.6 mmol/L (3.5-5.1) Chloride Level 98 mmol/L (98-107) Carbon Dioxide Level 29 mmol/L (21-32) Anion Gap 8 (6-14) Blood Urea Nitrogen 5 mg/dL (8-26) Creatinine 1.1 mg/dL (0.7-1.3) Estimated GFR (Cockcroft-Gault) 71.8 Glucose Level 122 mg/dL (70-99) Calcium Level 9.1 mg/dL (8.5-10.1) Heparin Anti-Xa Act, Unfractionated 0.20 IU/mL (0.30-0.70) Glucose (Fingerstick) 124 mg/dL (70-99) Laboratory Tests Test 08/30/20 21:00 08/30/20 22:15 08/31/20 05:55 08/31/20 08:01 Urine Collection Type Unknown Urine Color Yellow Urine Clarity Clear Urine pH 6.0 (<5.0-8.0) Urine Specific [place] 1.015 (1.000-1.030) Urine Protein Negative mg/dL (NEG-TRACE) Urine Glucose (UA) Negative mg/dL (NEG) Urine Ketones (Stick) Negative mg/dL (NEG) Urine Blood Negative (NEG) Urine Nitrite Negative (NEG) Urine Bilirubin Small (NEG) Urine Urobilinogen Dipstick 1.0 mg/dL (0.2 mg/dL) Urine Leukocyte Esterase Negative (NEG) Urine RBC Rare /HPF (0-2) Urine WBC 1-4 /HPF (0-4) Urine Squamous Epithelial Cells Mod /LPF Urine Bacteria 0 /HPF (0-FEW) Urine Mucus Marked /LPF White Blood Count 15.2 x10^3/uL (4.0-11.0) Red Blood Count 4.77 x10^6/uL (4.30-5.70) Hemoglobin 14.9 g/dL (13.0-17.5) Hematocrit 43.4 % (39.0-53.0) Mean Corpuscular Volume 91 fL (79-100) Mean Corpuscular Hemoglobin 31 pg (25-35) Mean Corpuscular Hemoglobin Concent 34 g/dL (31-37) Red Cell Distribution Width 12.6 % (11.5-14.5) Platelet Count 259 x10^3/uL (140-400) Neutrophils (%) (Auto) 68 % (31-73) Lymphocytes (%) (Auto) 19 % (24-48) Monocytes (%) (Auto) 11 % (0-9) Eosinophils (%) (Auto) 1 % (0-3) Basophils (%) (Auto) 1 % (0-3) Neutrophils # (Auto) 10.3 x10^3/uL (1.8-7.7) Lymphocytes # (Auto) 2.9 x10^3/uL (1.0-4.8) Monocytes # (Auto) 1.6 x10^3/uL (0.0-1.1) Eosinophils # (Auto) 0.2 x10^3/uL (0.0-0.7) Basophils # (Auto) 0.1 x10^3/uL (0.0-0.2) Sodium Level 135 mmol/L (136-145) Potassium Level 3.6 mmol/L (3.5-5.1) Chloride Level 98 mmol/L (98-107) Carbon Dioxide Level 29 mmol/L (21-32) Anion Gap 8 (6-14) Blood Urea Nitrogen 5 mg/dL (8-26) Creatinine 1.1 mg/dL (0.7-1.3) Estimated GFR (Cockcroft-Gault) 71.8 Glucose Level 122 mg/dL (70-99) Calcium Level 9.1 mg/dL (8.5-10.1) Heparin Anti-Xa Act, Unfractionated 0.20 IU/mL (0.30-0.70) Glucose (Fingerstick) 124 mg/dL (70-99) VTE Prophylaxis Ordered VTE Prophylaxis Devices: Yes VTE Pharmacological Prophylaxi: Yes Assessment/Plan Assessment/Plan Partially occlusive thrombus in the right common femoral vein, superficial femoral vein and popliteal vein. Occlusive thrombus in the posterior tibial vein. History of Asthma, LUPUS ANTICOAGULANT SYNDROME Intractable pain Plan: will start Dilaudid for pain control will start warfarin continue heparin resume home medications further recommendations based on clinical course. DVT prophylaxis: patient on Heparin Justifications for Admission Other Justification DION RODRIGUEZ MD Aug 31, 2020 10:43
[2020-08-31 11:00] VITALS: BP 99/61
--- NOTE | 2020-08-31 11:04 | NUR ---
SS following for discharge planning. SS reviewed pt chart and discussed with pt RN. Pt is from home and is currently on room air. Pt stating that he cannot afford his xarelto. SS provided pt with prescription savings card for xarelto that would cover the first 90 days with a $10 copay and would cover $200 per month after the first 90 day. Pt reported that his insurance will not pay for any of the prescription and the cost would be $580 per month. Pt reported that he cannot have xarelto and is requesting to be switched to warfarin. Pt's RN notified. SS will continue to follow for discharge planning.
--- NOTE | 2020-08-31 11:49 | NUR ---
Dr. Mariscal ordered 20-30 mmhg bilateral compression stockings for pt. [facility] was called and stated they do not keep these in stock. Dr. Mariscal was then called back and asked if the T.E.D hose that we have available were sufficient. Dr. Mariscal stated to call [employer] back and insisted they are always in stock. [employer] was called back and they stated they do not keep them in stock. They can be ordered for pt, but it takes 1-2 weeks to receive them. They are also not covered by insurance. Without access to the compression stockings I am unable to place them on the pt.
[2020-08-31] MEDS: IPRATRPIUM/ALBUTEROL 0.5/2.5MG 3 ML NEBU. NEB SCH ×3 (11:51→20:24)
[2020-08-31] MEDS: HYDROmorphone 2 MG/ML VIAL IVP PRN ×3 (14:37→23:39)
[2020-08-31 15:00] VITALS: BP 94/60
[2020-08-31] MEDS ORDERED: WARFARIN 5 MG TABLET. PO ONE (16:00)
[2020-08-31 19:39] VITALS: BP 115/63
[2020-08-31] MEDS ORDERED: INSULIN GLARGINE SYRINGE. SQ SCH (21:00)
[2020-08-31 22:14] VITALS: BP 111/68
[2020-09-01] MEDS: HYDROmorphone 2 MG/ML VIAL IVP PRN ×3 (02:40→09:11)
[2020-09-01 03:16] VITALS: BP 107/66
[2020-09-01 05:57] LABS: HEMATOCRIT 40.1 % (39.0-53.0); HEMOGLOBIN 13.6 g/dL (13.0-17.5); RED BLOOD COUNT 4.4 x10^6/uL (4.30-5.70); RED CELL DISTRIBUTION WIDTH 12.7 % (11.5-14.5); WHITE BLOOD COUNT 14.2 x10^3/uL (4.0-11.0)
[2020-09-01 06:14] LABS: PROTHROMBIN TIME PATIENT 13.5 SEC (11.7-14.0)
[2020-09-01 06:16] LABS: UNFRACTIONATED HEPARIN TESTING 0.15 IU/mL (0.30-0.70)
[2020-09-01 07:00] VITALS: BP 115/73
[2020-09-01] MEDS: HEPARIN for IV BOLUS 10,000 UNIT/10 ML VIAL. IV PRN (07:11)
[2020-09-01] MEDS: IPRATRPIUM/ALBUTEROL 0.5/2.5MG 3 ML NEBU. NEB SCH ×2 (07:37→12:03)
[2020-09-01] MEDS: HEPARIN 25,000UTS/250ML PREMIX 250 ML IV PRN (09:00)
[2020-09-01] MEDS: glipiZIDE ER 2.5 MG TAB.ER.24 PO SCH (09:11)
[2020-09-01] MEDS ORDERED: oxyCODONE/APAP 5/325 1 TAB TABLET PO PRN (09:30)
--- NOTE | 2020-09-01 09:39 | NUR ---
SS following up with discharge planning. SS reviewed pt chart and discussed with pt RN. Pt is currently on room air. Pt on Warfarin now. Heparin drip remains. Discharge plan is to home when medically ready. SS will continue to follow for discharge planning.
[2020-09-01 11:10] VITALS: BP 118/70
[2020-09-01] MEDS ORDERED: RIVA15TA PO (11:42)
[2020-09-01] MEDS ORDERED: RIVA20TA2 PO (11:42)
[2020-09-01] MEDS ORDERED: OXYC1TAB19 PO (11:43)
--- NOTE | 2020-09-01 14:41 | NUR ---
Discharge Note: NITO RODRIGUEZ [place] Discharge instructions and discharge home medications reviewed with Patient and a copy given. All questions have been answered and understanding verbalized. The following instructions and handouts were given: xeralto, symptoms worsening, work excuse, and discharge instructions. Discontinued lines and drains: peripheral iv discontinued. Patient discharged to home via ambulation accompanied by family.
--- NOTE | 2020-09-01 15:04 | PDOC3 ---
Discharge Summary Visit Information Date of Admission: Aug 31, 2020 Date of Discharge: Sep 01, 2020 Admitting Diagnosis Comment: Partially occlusive thrombus in the right common femoral vein, superficial femoral vein and popliteal vein. Occlusive thrombus in the posterior tibial vein. History of Asthma, LUPUS ANTICOAGULANT SYNDROME Intractable pain Final Diagnosis Partially occlusive thrombus in the right common femoral vein, superficial femoral vein and popliteal vein. Occlusive thrombus in the posterior tibial vein. History of Asthma, LUPUS ANTICOAGULANT SYNDROME Intractable pain Brief Hospital Course Allergies Allergies Coded Allergies Type Severity Reaction Last Updated Verified morphine Adverse Reaction Intermediate Nausea 09/13/19 Yes Vital Signs Vital Signs Date Time Temp Pulse Resp B/P (MAP) Pulse Ox O2 Delivery O2 Flow Rate FiO2 09/01/20 12:04 Room Air 09/01/20 11:10 98.9 79 18 118/70 (86) 93 98.9 Lab Results Laboratory Tests Test 08/30/20 21:00 08/30/20 22:15 08/31/20 05:55 08/31/20 08:01 Urine Collection Type Unknown Urine Color Yellow Urine Clarity Clear Urine pH 6.0 (<5.0-8.0) Urine Specific [place] 1.015 (1.000-1.030) Urine Protein Negative mg/dL (NEG-TRACE) Urine Glucose (UA) Negative mg/dL (NEG) Urine Ketones (Stick) Negative mg/dL (NEG) Urine Blood Negative (NEG) Urine Nitrite Negative (NEG) Urine Bilirubin Small (NEG) Urine Urobilinogen Dipstick 1.0 mg/dL (0.2 mg/dL) Urine Leukocyte Esterase Negative (NEG) Urine RBC Rare /HPF (0-2) Urine WBC 1-4 /HPF (0-4) Urine Squamous Epithelial Cells Mod /LPF Urine Bacteria 0 /HPF (0-FEW) Urine Mucus Marked /LPF White Blood Count 15.2 x10^3/uL (4.0-11.0) Red Blood Count 4.77 x10^6/uL (4.30-5.70) Hemoglobin 14.9 g/dL (13.0-17.5) Hematocrit 43.4 % (39.0-53.0) Mean Corpuscular Volume 91 fL (79-100) Mean Corpuscular Hemoglobin 31 pg (25-35) Mean Corpuscular Hemoglobin Concent 34 g/dL (31-37) Red Cell Distribution Width 12.6 % (11.5-14.5) Platelet Count 259 x10^3/uL (140-400) Neutrophils (%) (Auto) 68 % (31-73) Lymphocytes (%) (Auto) 19 % (24-48) Monocytes (%) (Auto) 11 % (0-9) Eosinophils (%) (Auto) 1 % (0-3) Basophils (%) (Auto) 1 % (0-3) Neutrophils # (Auto) 10.3 x10^3/uL (1.8-7.7) Lymphocytes # (Auto) 2.9 x10^3/uL (1.0-4.8) Monocytes # (Auto) 1.6 x10^3/uL (0.0-1.1) Eosinophils # (Auto) 0.2 x10^3/uL (0.0-0.7) Basophils # (Auto) 0.1 x10^3/uL (0.0-0.2) Sodium Level 135 mmol/L (136-145) Potassium Level 3.6 mmol/L (3.5-5.1) Chloride Level 98 mmol/L (98-107) Carbon Dioxide Level 29 mmol/L (21-32) Anion Gap 8 (6-14) Blood Urea Nitrogen 5 mg/dL (8-26) Creatinine 1.1 mg/dL (0.7-1.3) Estimated GFR (Cockcroft-Gault) 71.8 Glucose Level 122 mg/dL (70-99) Calcium Level 9.1 mg/dL (8.5-10.1) Heparin Anti-Xa Act, Unfractionated 0.20 IU/mL (0.30-0.70) Glucose (Fingerstick) 124 mg/dL (70-99) Test 08/31/20 12:28 08/31/20 14:00 08/31/20 17:05 08/31/20 20:04 Glucose (Fingerstick) 123 mg/dL (70-99) 136 mg/dL (70-99) Heparin Anti-Xa Act, Unfractionated 0.46 IU/mL (0.30-0.70) 0.34 IU/mL (0.30-0.70) Test 08/31/20 21:27 09/01/20 05:10 10/8/20 07:47 09/01/20 11:47 Glucose (Fingerstick) 129 mg/dL (70-99) 108 mg/dL (70-99) 100 mg/dL (70-99) White Blood Count 14.2 x10^3/uL (4.0-11.0) Red Blood Count 4.40 x10^6/uL (4.30-5.70) Hemoglobin 13.6 g/dL (13.0-17.5) Hematocrit 40.1 % (39.0-53.0) Mean Corpuscular Volume 91 fL (79-100) Mean Corpuscular Hemoglobin 31 pg (25-35) Mean Corpuscular Hemoglobin Concent 34 g/dL (31-37) Red Cell Distribution Width 12.7 % (11.5-14.5) Platelet Count 217 x10^3/uL (140-400) Prothrombin Time 13.5 SEC (11.7-14.0) Prothromb Time International Ratio 1.1 (0.8-1.1) Heparin Anti-Xa Act, Unfractionated 0.15 IU/mL (0.30-0.70) Laboratory Tests Test 08/31/20 17:05 08/31/20 20:04 08/31/20 21:27 09/01/20 05:10 Glucose (Fingerstick) 136 mg/dL (70-99) 129 mg/dL (70-99) Heparin Anti-Xa Act, Unfractionated 0.34 IU/mL (0.30-0.70) 0.15 IU/mL (0.30-0.70) White Blood Count 14.2 x10^3/uL (4.0-11.0) Red Blood Count 4.40 x10^6/uL (4.30-5.70) Hemoglobin 13.6 g/dL (13.0-17.5) Hematocrit 40.1 % (39.0-53.0) Mean Corpuscular Volume 91 fL (79-100) Mean Corpuscular Hemoglobin 31 pg (25-35) Mean Corpuscular Hemoglobin Concent 34 g/dL (31-37) Red Cell Distribution Width 12.7 % (11.5-14.5) Platelet Count 217 x10^3/uL (140-400) Prothrombin Time 13.5 SEC (11.7-14.0) Prothromb Time International Ratio 1.1 (0.8-1.1) Test 09/01/20 07:47 09/01/20 11:47 Glucose (Fingerstick) 108 mg/dL (70-99) 100 mg/dL (70-99) Brief Hospital Course History of Present Illness Patient is a 45 year old male with past medical history of LUPUS anticoagulant with history of previous DVT who comes today complaining of loer extrmity pain as a consequence of an acute DVT. Patient was diagnosed with an acute thrombosis in pulmonary embolism and was placed on Xarelto couple months ago. The medication was being paid off by an assistance program but unfortunately the program ended and the cost for the patient is over $500 and he already pays $200 versus insulin. He was unable to afford this relative unresolved anticoagulation for the last two weeks. Patient presented sudden onset of exquisite pain over the right lower extremity thrombosis has been found, results of Doppler is as follows: Partially occlusive thrombus in the right common femoral vein, superficial femoral vein and popliteal vein. Occlusive thrombus in the posterior tibial vein. He is being admitted for further treatment. At the time my evaluation the patient is in no acute distress limits of some discomfort he just received fentanyl. The patient denies any chest pain or palpitations no shortness of breath is been reported no nausea vomiting no diarrhea no stroke like symptoms no headaches no other complaints voiced. Reassurance has been provided in the p abida of care explained in detail. Patient had a very uneventful hospital stay. He did not present chest discomfort and no shortness of breath. The patient was given Dilaudid for pain control given that he did not respond to the initial morphine. Patient's discomfort improved once a heparin drip was instituted. He was able to somehow find a way to finance Xarelto given that he has not had a good experience with warfarin in the past. Patient was in good spirits to be discharged home, he acknowledged understanding of all the instructions and the signs and symptoms of concern when to seek medical attention were discussed prior to dismissal. Physical exam lungs clear to auscultation with good inspiratory effort Cardiovascular exam S1-S2 regular rhythm no murmurs gallops or rubs Assessment Assessment IMAGING REPORT Signed PATIENT: SPARKLE RODRIGUEZACCOUNT: [id number] : 1975 LOCATION: ER AGE: 45 SEX: M EXAM STATUS: REG ER ORD. PHYSICIAN: ADRIAN HOBBS MD REASON: pain, swelling PROCEDURE: VENOUS LOWER EXTREMITY RIGHT Exam: Right lower extremity venous duplex study INDICATION: Leg swelling TECHNIQUE: Using a combination of real-time ultrasound imaging and color-flow and pulse Doppler imaging techniques along with graded compression and augmentation, duplex evaluation of the deep venous systems of rightlower extremity was performed. Multiple images were obtained. Findings: Partially occlusive thrombus is noted within the right common femoral vein and right superficial femoral vein and right popliteal vein. Occlusive thrombus noted in the posterior tibial vein. IMPRESSION: Partially occlusive thrombus in the right common femoral vein, superficial femoral vein and popliteal vein. Occlusive thrombus in the posterior tibial vein. Electronically signed by: Juan J Larkin MD (08/30/2020 11:03 PM) [facility] Discharge Information Condition at Discharge: Improved Follow Up: Weeks Disposition/Orders: D/C to Home Scheduled Glipizide (Glipizide Xl) 5 Mg Tab.er.24, 1 TAB PO DAILY for DMII for 30 Days, #30 Ref 0 (Reported) Entered as Reported by: LILIAN WATTS RN on 08/31/20225 Last Taken: Unknown Dose on 08/30/20799 Last Action: Converted on 08/31/20838 by CHUNG CASANOVA MD Insulin Glargine,Hum.rec.anlog (Lantus Solostar) 100 Unit/1 Ml Insuln.pen, 24 UNIT SQ QHS for DM, #15 Ref 3 (Reported) Entered as Reported by: LILIAN WATTS RN on 08/31/20226 Last Action: Converted on 08/31/20838 by CHUNG CASANOVA MD Ipratropium/Albuterol Sulfate (Duoneb 0.5-3(2.5) Mg/3 Ml) 3 Ml Ampul.neb, 3 ML NEB QID for asthma, (Reported) Entered as Reported by: Rhonda Wisdom on 09/13/19 7108 Last Action: Continued on 08/31/20838 by CHUNG CASANOVA MD Metformin Hcl (Metformin Hcl) 1,000 Mg Tablet, 1,000 MG PO BIDWMEALS for Diabetes, (Reported) Entered as Reported by: LILIAN WATTS RN on 08/31/20225 Last Action: HELD on 08/31/20838 by CHUNG CASANOVA MD Methylprednisolone (Medrol) 4 Mg Tab.ds.pk, 1 PKG PO UD, #1 Prescribed by: DANA JENSEN APRN on 12/08/191855 Last Action: HELD on 08/31/20838 by CHUNG CASANOVA MD Rivaroxaban (Xarelto) 15 Mg Tablet, 1 TAB PO BID for DVT for 21 Days, #42 Ref 0 Prescribed by: CHUNG CASANOVA MD on 09/01/201141 Rivaroxaban (Xarelto) 20 Mg Tablet, 1 TAB PO DAILY for DVT for 30 Days, #30 Ref 1 with food Prescribed by: CHUNG CASANOVA MD on 09/01/201141 Scheduled PRN Albuterol Sulfate (Proair Hfa Inhaler) 8.5 Gm Hfa.aer.ad, 2 PUFF IH PRN Q4-6HRS PRN for wheezing for 21 Days, #1 Ref 0 (Reported) Entered as Reported by: Rhonda Wisdom on 09/13/192344 Last Action: Continued on 08/31/20838 by CHUNG CASANOVA MD Albuterol Sulfate (Albuterol Sulfate Conc Neb Soln) 2.5 Mg/0.5 Ml Vial.neb, 1 VIAL NEB Q6HRS PRN for WHEEZING, #120 Ref 0 Prescribed by: DANA JENSEN APRN on 12/08/191854 Last Action: Converted on 08/31/20838 by CHUNG CASANOVA MD Oxycodone/Apap 7.5-325 (Percocet 7.5-325 Mg Tablet ) 1 Each Tablet, 1 TAB PO QIDPRN PRN for PAIN MDD 4 Tablet(s) for 5 Days, #20 Ref 0 Prescribed by: CHUNG CASANOVA MD on 09/01/201142 Discontinued Medications Rivaroxaban (Xarelto) 20 Mg Tablet, 1 TAB PO DAILY for anticoag for 30 Days, #30 Ref 0 (Reported) with food Entered as Reported by: Rhonda Wisdom on 09/13/192344 Last Action: HELD on 08/31/20838 by CHUNG CASANOVA MD Rivaroxaban (Xarelto) 20 Mg Tablet, 1 TAB PO DAILY for 30 Days, #30 Ref 0 with food Prescribed by: DANA JENSEN APRN on 12/08/191854 Last Action: HELD on 08/31/20 0839 by CHUNG CASANOVA MD Justicifation of Admission Dx: Justifications for Admission: Justification of Admission Dx: Yes Comments: Anticoagulation failure CHUNG CASANOVA MD Sep 01, 2020 15:03
== END 2020-09-01 13:19 | disposition home or self-care (01) | DRG 300 ==
LOC: ER 19:14 → 2 NORTH 23:00
PROVIDERS: ADMIT Internal Medicine; ATTEND Internal Medicine
DX: I82.411 Acute embolism and thrombosis of right femoral vein (principal); D68.62 Lupus anticoagulant syndrome; I82.431 Acute embolism and thrombosis of right popliteal vein; F17.200 Nicotine dependence, unspecified, uncomplicated; I10 Essential (primary) hypertension; E78.5 Hyperlipidemia, unspecified; J44.9 Chronic obstructive pulmonary disease, unspecified; E11.9 Type 2 diabetes mellitus without complications; E66.01 Morbid (severe) obesity due to excess calories; Z68.37 Body mass index [BMI] 37.0-37.9, adult; Z83.3 Family history of diabetes mellitus; I87.003 Postthrombotic syndrome without complications of bilateral lower extremity; Z87.01 Personal history of pneumonia (recurrent); Z88.5 Allergy status to narcotic agent; Z82.49 Family history of ischemic heart disease and other diseases of the circulatory system; Z86.711 Personal history of pulmonary embolism
CPT/HCPCS: 36415; 80048; 81001; 82962; 85025; 85027; 85520; 85610; 93971; 94640; 94760; 96361; 96374; 99406; J1170; J1644; J1815; J3010; J7030; 99285-25; G0378

== ENCOUNTER 2021-05-31 12:45 | Emergency (ER) | payer OTHER ==
[~2021-05-31] VITALS: Ht 188 cm; Wt 153.6 kg
[~2021-05-31 12:45] MED LIST changes: +GLIP-24 PO; +INSU100I13 SQ; +METF10007 PO; +OXYC1TAB19 PO; +RIVA15TA PO
[2021-05-31 14:09] VITALS: BP 127/64
--- NOTE | 2021-05-31 14:20 | RAD ---
EXAMINATION: US DPLX VENOUS EXTREMITY LOWER RT (LOWER EXTREMITY VENOUS ULTRASOUND) CLINICAL HISTORY: Right lower extremity pain with history of DVT TECHNIQUE: Sonographic grayscale images obtained of the right lower extremity deep venous system with color flow Doppler, compression, and augmentation techniques as indicated. Images obtained and stor ed in a permanent archive. COMPARISON: 08/30/2020, 09/13/2019 FINDINGS: No evidence of absent flow or incompressibility within the common femoral vein, femoral vein, or popl iteal vein. Visualized calf veins appear patent on limited evaluation. Partially visualized endovascular stent in the common femoral vein. IMPRESSION: No evidence of right lower extremity DVT. Electronically signed by: Joseluis Uribe DO (05/31/2021 2:17 PM) [facility]
--- NOTE | 2021-05-31 14:45 | PHYS DOC ---
Past Medical History Past Medical History: Asthma, Bronchitis, Coagulopathy, Diabetes-Type II, DVT, Pneumonia Additional Past Medical Histor: LUPUS ANTICOAGULANT SYNDROME, HYPOGYCEMIA, IVC FILTER, RIGHT GROIN STENT ([employer]ER) Past Surgical History: Other Additional Past Surgical Histo: right common femoral stenting,vena cava filter,CLOT REMOVAL ([employer] TE[employer]ER) Smoking Status: Current Every Day Smoker Additional Information: 1 PPD Alcohol Use: None (LEXUS ANGULO APRN) General Adult EDM: Chief Complaint: LOWER EXT PAIN HPI: HPI: Patient is a 45 year old male with history of diabetes type 2, DVT, PE, lupus with anticoagulopathy syndrome who presents to the ED today complaining of moderate pain to the right lower extremity that has been going on for 3 days. Patient denies any known injury but states he stubbed his right third toe on a bed a couple days ago. He states this pain is not from that. He states he believes he has a blood clot in the right lower extremity. He is currently on Xarelto and states he is not able to afford the medicine anymore. He states he still taking the medicine though. Patient describes the pain as throbbing and intermittent. ([employer]ER) Review of Systems: Review of Systems: Constitutional: Denies fever or chills. [] Musculoskeletal: Reports right lower extremity pain. Denies back pain or joint pain. [] Integument: Denies rash. [] Neurologic: Denies headache, focal weakness or sensory changes. [] Psychiatric: Denies depression or anxiety. 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 [] Abdomen: Bowel sounds normal, soft, no tenderness, no masses, no pulsatile masses. [] Skin: Warm, dry, no erythema, no rash. [] Back: No tenderness, no CVA tenderness. [] Extremities: Obese patient. No tenderness, no cyanosis, no clubbing, ROM intact, no edema. Negative Homans' sign bilaterally. Bruising noted on the Great toenail tip Neurologic: Alert and oriented X 3, normal motor function, normal sensory function, no focal deficits noted. [] Psychologic: Affect normal, judgement normal, mood normal. [] ([employer] TE[employer]ER) Current Patient Data: Vital Signs: Vital Signs Date Time Temp Pulse Resp B/P (MAP) Pulse Ox O2 Delivery O2 Flow Rate FiO2 05/31/21 12:59 98.3 107 20 173/91 (86) 95 Room Air 98.3 ([employer] TE[employer]ER) EKG: EKG: [] ([employer]ER) Radiology/Procedures: Radiology/Procedures: []PROCEDURE: VENOUS LOWER EXTREMITY RIGHT EXAMINATION: US DPLX VENOUS EXTREMITY LOWER RT (LOWER EXTREMITY VENOUS ULTRASOUND) CLINICAL HISTORY: Right lower extremity pain with history of DVT TECHNIQUE: Sonographic grayscale images obtained of the right lower extremity deep venous system with color flow Doppler, compression, and augmentation techniques as indicated. Images obtained and stored in a permanent archive. COMPARISON: 08/30/2020, 09/13/2019 FINDINGS: No evidence of absent flow or incompressibility within the common femoral vein, femoral vein, or popliteal vein. Visualized calf veins appear patent on limited evaluation. Partially visualized endovascular stent in the common femoral vein. IMPRESSION: No evidence of right lower extremity DVT. Electronically signed by: Joseluis Aguilar DO (05/31/2021 2:17 PM) [facility] DICTATED and SIGNED BY: JOSELUIS GAUILAR DO DATE: 05/31/21 [id number] ([employer]) Course & Med Decision Making: Course & Med Decision Making Pertinent Labs and Imaging studies reviewed. (See chart for details) This a 45-year-old female patient presenting to the ED today with right lower extremity pain and concerned he could have a DVT to the right lower extremity. He is already on Xarelto for previous DVT and PEs. Venous Doppler of the right lower extremity is negative. Patient states he cannot afford his Xarelto. I requested he follows up with the doctor who prescribed it and they can discuss what options he has. He states he does not know the doctor's name and apparently the doctor moved to a different location and he has no idea where the PCP is. I gave him a doctor's list as well as a store lead (LEXUS ANGULO APRN) Shani Disclaimer: Shani Disclaimer: This electronic medical record was generated, in whole or in part, using a voice recognition dictation system. (LEXUS ANGULO APRN) Departure Departure Impression: Primary Impression: Right leg pain Disposition: HOME / SELF CARE / HOMELESS Condition: STABLE Referrals: NO PCP (PCP) follow up with a doctor from the list provided as soon as you can Patient Instructions: Musculoskeletal Pain Additional Instructions: Venous Doppler of your right lower extremity is negative for any acute findings. We highly recommend you contact the provided primary care doctor and cardiology from the list you have and follow-up with them. Attending Signature I have participated in the care of this patient and I have reviewed and agree with all pertinent clinical information above including history, exam, and recommendations. (VINCENT FERGUSON DO) LEXUS ANGULO APRN May 31, 2021 14:45 VINCENT FERGUSON DO May 31, 2021 15:48
== END 2021-05-31 14:48 | disposition home or self-care (01) ==
LOC: ER 12:45
DX: M79.604 Pain in right leg (principal); J45.909 Unspecified asthma, uncomplicated; E11.9 Type 2 diabetes mellitus without complications; Z86.718 Personal history of other venous thrombosis and embolism; F17.200 Nicotine dependence, unspecified, uncomplicated; Z88.5 Allergy status to narcotic agent
CPT/HCPCS: 93971; 99284